=== PATIENT | male | born 1965 | race African-American/Black ===

== ENCOUNTER 2017-08-10 14:36 | Inpatient (IN) | payer OTHER ==
[2017-08-10] MEDS ORDERED: MAGNESIUM HYDROX 2400MG/30ML ORAL SUSPENSION 30 ML CUP PO PRN (17:14)
[2017-08-10] MEDS ORDERED: ACETAMINOPHEN 325 MG TABLET (FP) PO PRN (17:14)
[2017-08-10] MEDS ORDERED: NICOTINE POLACRILEX 2 MG GUM BUC PRN (17:14)
[2017-08-10] MEDS ORDERED: ALBUTEROL SO4 18 GM HFA INHALER IH PRN (17:14)
[2017-08-10] MEDS ORDERED: MENTHOL/PHENOL 1 EACH UD MM PRN (17:14)
[2017-08-10] MEDS ORDERED: P-EPHED 60MG/TRIPROLIDI 2.5MG TABLET PO PRN (17:14)
[2017-08-10] MEDS ORDERED: LOPERAMIDE HCL 2 MG CAPSULE PO PRN (17:14)
[2017-08-10] MEDS ORDERED: MAGNESIUM CITRATE 300 ML BOTTLE PO PRN (17:14)
--- NOTE | 2017-08-10 17:16 | HP ---
[facility] Re[facility] Assess/Revision - Admission History Admitted to Rehab from: [facility] [place] Date of Admission to Rehab: 08/10/17 - Findings Detox History & Physical reviewed: Yes Concur with findings: Yes Inpatient Rehab Admission - Initial Determination Are CD services needed?: Yes Free of communicable disease: Yes Not in need of hospitalization: Yes - Rehab Admission Criteria Previous failed treatment: Yes Poor recovery environment: Yes Comorbidities: Yes Lacks judgement: Yes Patient is meeting Inpatient Rehab admission criteria:: Yes
[2017-08-10] MEDS: BUDESONIDE/FORMETEROL FUMARATE 80/4.5 mcg INHALER IH SCH (21:14)
[2017-08-10] MEDS: THIAMINE HCL 100 MG TABLET (FP) PO SCH (21:14)
[2017-08-11] MEDS: BUDESONIDE/FORMETEROL FUMARATE 80/4.5 mcg INHALER IH SCH ×2 (09:58→22:01)
[2017-08-11] MEDS: PRENATAL VITAMINS W/ FOLIC ACID TABLET (FP) PO SCH (09:58)
[2017-08-11] MEDS: NICOTINE 14 MG/24 HOURS TOPICAL PATCH TD SCH (09:58)
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
[2017-08-11] MEDS ORDERED: COLLOIDAL OATMEAL 1 BAR EACH TP PRN (15:15)
--- NOTE | 2017-08-11 15:15 | PN ---
S Progress Note (SOAP) Subjective: patient c/o indigestion and flatulence, back pain and bordrline PPD placed on admission Objective: 08/11/17 15:14 Vital Signs - 24 hr 08/10/17 08/11/17 08/11/17 17:22 03:30 07:06 Temperature 97.5 F L 97.6 F Pulse Rate 71 63 Respiratory 18 18 18 Rate Blood Pressure 121/63 103/62 labs reviewd, slight indruation of ppd placed on left forearm Assessment: 08/11/17 15:15 restat PPI - protonix, borderline PPD, chronic back pain will restart
[2017-08-11] MEDS: PANTOPRAZOLE 40 MG TABLET (FP) PO SCH (16:15)
[2017-08-11] MEDS: MINERAL OIL/PETROLAT/WATER TOPICAL CREAM 113 GM JAR TP SCH (16:15)
[2017-08-11] MEDS: GABAPENTIN 300 MG CAPSULE (FP) PO SCH ×2 (16:15→22:01)
[2017-08-11] MEDS ORDERED: TUBERCULIN PPD 5 TU/0.1ML VIAL ID ONE (17:04)
[2017-08-11] MEDS: THIAMINE HCL 100 MG TABLET (FP) PO SCH (22:01)
[2017-08-11] MEDS: SIMETHICONE 80 MG TAB.CHEW (FP) PO PRN (22:03)
[2017-08-12] MEDS: GABAPENTIN 300 MG CAPSULE (FP) PO SCH ×3 (06:27→22:06)
[2017-08-12] MEDS: BUDESONIDE/FORMETEROL FUMARATE 80/4.5 mcg INHALER IH SCH ×2 (10:37→22:06)
[2017-08-12] MEDS: NICOTINE 14 MG/24 HOURS TOPICAL PATCH TD SCH (10:38)
[2017-08-12] MEDS: MINERAL OIL/PETROLAT/WATER TOPICAL CREAM 113 GM JAR TP SCH (10:38)
[2017-08-12] MEDS: PRENATAL VITAMINS W/ FOLIC ACID TABLET (FP) PO SCH (10:39)
[2017-08-12] MEDS: SIMETHICONE 80 MG TAB.CHEW (FP) PO PRN (10:40)
[2017-08-12] MEDS: PANTOPRAZOLE 40 MG TABLET (FP) PO SCH (10:40)
[2017-08-12] MEDS: THIAMINE HCL 100 MG TABLET (FP) PO SCH (22:07)
[2017-08-13] MEDS: GABAPENTIN 300 MG CAPSULE (FP) PO SCH ×3 (06:39→21:04)
[2017-08-13] MEDS: BUDESONIDE/FORMETEROL FUMARATE 80/4.5 mcg INHALER IH SCH ×2 (10:44→21:03)
[2017-08-13] MEDS: NICOTINE 14 MG/24 HOURS TOPICAL PATCH TD SCH (10:44)
[2017-08-13] MEDS: PRENATAL VITAMINS W/ FOLIC ACID TABLET (FP) PO SCH (10:44)
[2017-08-13] MEDS: PANTOPRAZOLE 40 MG TABLET (FP) PO SCH (10:44)
[2017-08-13] MEDS: MINERAL OIL/PETROLAT/WATER TOPICAL CREAM 113 GM JAR TP SCH (10:46)
[2017-08-13] MEDS: IBUPROFEN 400 MG TABLET (FP) PO PRN (10:47)
[2017-08-13] MEDS: MAG HYDROX/AL HYDROX/SIMETH 30 ML UNIT-DOSE CUP PO PRN (21:04)
[2017-08-13] MEDS: THIAMINE HCL 100 MG TABLET (FP) PO SCH (21:06)
[2017-08-14] MEDS: GABAPENTIN 300 MG CAPSULE (FP) PO SCH ×3 (06:24→21:08)
[2017-08-14] MEDS: MINERAL OIL/PETROLAT/WATER TOPICAL CREAM 113 GM JAR TP SCH (10:22)
[2017-08-14] MEDS: NICOTINE 14 MG/24 HOURS TOPICAL PATCH TD SCH (10:22)
[2017-08-14] MEDS: BUDESONIDE/FORMETEROL FUMARATE 80/4.5 mcg INHALER IH SCH ×2 (10:22→21:09)
[2017-08-14] MEDS: PANTOPRAZOLE 40 MG TABLET (FP) PO SCH (10:22)
[2017-08-14] MEDS: PRENATAL VITAMINS W/ FOLIC ACID TABLET (FP) PO SCH (10:22)
[2017-08-14] MEDS: guaiFENesin/D-METHORPHAN HB 10 ML UNIT-DOSE CUPS PO PRN (14:16)
[2017-08-14] MEDS: THIAMINE HCL 100 MG TABLET (FP) PO SCH (21:08)
[2017-08-15] MEDS: GABAPENTIN 300 MG CAPSULE (FP) PO SCH ×3 (06:34→22:16)
[2017-08-15] MEDS: IBUPROFEN 400 MG TABLET (FP) PO PRN (07:52)
[2017-08-15] MEDS: PANTOPRAZOLE 40 MG TABLET (FP) PO SCH (10:18)
[2017-08-15] MEDS: PRENATAL VITAMINS W/ FOLIC ACID TABLET (FP) PO SCH (10:18)
[2017-08-15] MEDS: BUDESONIDE/FORMETEROL FUMARATE 80/4.5 mcg INHALER IH SCH ×2 (10:18→22:16)
[2017-08-15] MEDS: NICOTINE 14 MG/24 HOURS TOPICAL PATCH TD SCH (10:18)
[2017-08-15] MEDS: MINERAL OIL/PETROLAT/WATER TOPICAL CREAM 113 GM JAR TP SCH (10:18)
[2017-08-15] MEDS: guaiFENesin/D-METHORPHAN HB 10 ML UNIT-DOSE CUPS PO PRN (10:19)
[2017-08-15] MEDS: THIAMINE HCL 100 MG TABLET (FP) PO SCH (22:16)
[2017-08-15] MEDS: RANITIDINE HCL 150 MG TABLET (FP) PO SCH (22:16)
[2017-08-16] MEDS: GABAPENTIN 300 MG CAPSULE (FP) PO SCH ×3 (06:25→21:57)
[2017-08-16] MEDS: PRENATAL VITAMINS W/ FOLIC ACID TABLET (FP) PO SCH (10:06)
[2017-08-16] MEDS: BUDESONIDE/FORMETEROL FUMARATE 80/4.5 mcg INHALER IH SCH ×2 (10:06→21:58)
[2017-08-16] MEDS: RANITIDINE HCL 150 MG TABLET (FP) PO SCH ×2 (10:06→21:57)
[2017-08-16] MEDS: NICOTINE 14 MG/24 HOURS TOPICAL PATCH TD SCH (10:07)
[2017-08-16] MEDS: MINERAL OIL/PETROLAT/WATER TOPICAL CREAM 113 GM JAR TP SCH (10:07)
[2017-08-16] MEDS: THIAMINE HCL 100 MG TABLET (FP) PO SCH (21:57)
[2017-08-17] MEDS: GABAPENTIN 300 MG CAPSULE (FP) PO SCH ×3 (05:59→21:44)
[2017-08-17] MEDS: BUDESONIDE/FORMETEROL FUMARATE 80/4.5 mcg INHALER IH SCH ×2 (10:10→21:44)
[2017-08-17] MEDS: NICOTINE 14 MG/24 HOURS TOPICAL PATCH TD SCH (10:11)
[2017-08-17] MEDS: PRENATAL VITAMINS W/ FOLIC ACID TABLET (FP) PO SCH (10:11)
[2017-08-17] MEDS: MINERAL OIL/PETROLAT/WATER TOPICAL CREAM 113 GM JAR TP SCH (10:11)
[2017-08-17] MEDS: RANITIDINE HCL 150 MG TABLET (FP) PO SCH ×2 (10:11→21:44)
[2017-08-17] MEDS: THIAMINE HCL 100 MG TABLET (FP) PO SCH (21:44)
[2017-08-18] MEDS: GABAPENTIN 300 MG CAPSULE (FP) PO SCH ×3 (06:22→21:46)
[2017-08-18] MEDS: PRENATAL VITAMINS W/ FOLIC ACID TABLET (FP) PO SCH (10:35)
[2017-08-18] MEDS: NICOTINE 14 MG/24 HOURS TOPICAL PATCH TD SCH (10:35)
[2017-08-18] MEDS: RANITIDINE HCL 150 MG TABLET (FP) PO SCH ×2 (10:35→21:46)
[2017-08-18] MEDS: BUDESONIDE/FORMETEROL FUMARATE 80/4.5 mcg INHALER IH SCH ×2 (10:35→21:46)
[2017-08-18] MEDS: MINERAL OIL/PETROLAT/WATER TOPICAL CREAM 113 GM JAR TP SCH (10:35)
[2017-08-18] MEDS: THIAMINE HCL 100 MG TABLET (FP) PO SCH (21:46)
[2017-08-19] MEDS: GABAPENTIN 300 MG CAPSULE (FP) PO SCH ×3 (06:27→21:31)
[2017-08-19] MEDS: PRENATAL VITAMINS W/ FOLIC ACID TABLET (FP) PO SCH (10:15)
[2017-08-19] MEDS: RANITIDINE HCL 150 MG TABLET (FP) PO SCH ×2 (10:15→21:31)
[2017-08-19] MEDS: BUDESONIDE/FORMETEROL FUMARATE 80/4.5 mcg INHALER IH SCH ×2 (10:15→21:31)
[2017-08-19] MEDS: MINERAL OIL/PETROLAT/WATER TOPICAL CREAM 113 GM JAR TP SCH (10:15)
[2017-08-19] MEDS: NICOTINE 14 MG/24 HOURS TOPICAL PATCH TD SCH (10:16)
[2017-08-19] MEDS: THIAMINE HCL 100 MG TABLET (FP) PO SCH (21:31)
[2017-08-20] MEDS: GABAPENTIN 300 MG CAPSULE (FP) PO SCH ×3 (06:20→21:42)
[2017-08-20] MEDS: RANITIDINE HCL 150 MG TABLET (FP) PO SCH ×2 (10:38→21:42)
[2017-08-20] MEDS: PRENATAL VITAMINS W/ FOLIC ACID TABLET (FP) PO SCH (10:38)
[2017-08-20] MEDS: NICOTINE 14 MG/24 HOURS TOPICAL PATCH TD SCH (10:38)
[2017-08-20] MEDS: BUDESONIDE/FORMETEROL FUMARATE 80/4.5 mcg INHALER IH SCH ×2 (10:38→21:42)
[2017-08-20] MEDS: MINERAL OIL/PETROLAT/WATER TOPICAL CREAM 113 GM JAR TP SCH (10:39)
--- NOTE | 2017-08-20 14:21 | PN ---
[facility] Progress Note (SOAP) Subjective: requesting to have PPD read, 2 step process implemented becaaseu of borderline initial PPD Objective: 08/20/17 14:20 Vital Signs - 24 hr 08/20/17 08/20/17 08/20/17 00:30 03:30 07:00 Temperature 98.4 F Pulse Rate 50 L Respiratory 16 16 16 Rate Blood Pressure 119/53 labs reviewed PPD neg with 2 step process Assessment: 08/20/17 14:21 PPD neg, cxr not indicated
[2017-08-20] MEDS: THIAMINE HCL 100 MG TABLET (FP) PO SCH (21:41)
[2017-08-21] MEDS: GABAPENTIN 300 MG CAPSULE (FP) PO SCH ×3 (06:24→22:10)
[2017-08-21] MEDS: RANITIDINE HCL 150 MG TABLET (FP) PO SCH ×2 (10:41→22:10)
[2017-08-21] MEDS: PRENATAL VITAMINS W/ FOLIC ACID TABLET (FP) PO SCH (10:41)
[2017-08-21] MEDS: BUDESONIDE/FORMETEROL FUMARATE 80/4.5 mcg INHALER IH SCH ×2 (10:42→22:10)
[2017-08-21] MEDS: NICOTINE 14 MG/24 HOURS TOPICAL PATCH TD SCH (10:42)
[2017-08-21] MEDS: MINERAL OIL/PETROLAT/WATER TOPICAL CREAM 113 GM JAR TP SCH (10:43)
[2017-08-21] MEDS: THIAMINE HCL 100 MG TABLET (FP) PO SCH (22:10)
[2017-08-22] MEDS: GABAPENTIN 300 MG CAPSULE (FP) PO SCH ×3 (06:33→21:43)
[2017-08-22] MEDS: NICOTINE 14 MG/24 HOURS TOPICAL PATCH TD SCH (10:38)
[2017-08-22] MEDS: MINERAL OIL/PETROLAT/WATER TOPICAL CREAM 113 GM JAR TP SCH (10:38)
[2017-08-22] MEDS: BUDESONIDE/FORMETEROL FUMARATE 80/4.5 mcg INHALER IH SCH ×2 (10:39→21:43)
[2017-08-22] MEDS: PRENATAL VITAMINS W/ FOLIC ACID TABLET (FP) PO SCH (10:39)
[2017-08-22] MEDS: RANITIDINE HCL 150 MG TABLET (FP) PO SCH ×2 (10:39→21:43)
[2017-08-22] MEDS: THIAMINE HCL 100 MG TABLET (FP) PO SCH (21:43)
[2017-08-23] MEDS: GABAPENTIN 300 MG CAPSULE (FP) PO SCH ×3 (06:47→21:35)
[2017-08-23] MEDS: RANITIDINE HCL 150 MG TABLET (FP) PO SCH ×2 (10:43→21:35)
[2017-08-23] MEDS: PRENATAL VITAMINS W/ FOLIC ACID TABLET (FP) PO SCH (10:43)
[2017-08-23] MEDS: MINERAL OIL/PETROLAT/WATER TOPICAL CREAM 113 GM JAR TP SCH (10:44)
[2017-08-23] MEDS: BUDESONIDE/FORMETEROL FUMARATE 80/4.5 mcg INHALER IH SCH ×2 (10:44→21:36)
[2017-08-23] MEDS: NICOTINE 14 MG/24 HOURS TOPICAL PATCH TD SCH (10:45)
[2017-08-23] MEDS: SIMETHICONE 80 MG TAB.CHEW (FP) PO PRN (11:12)
[2017-08-23] MEDS: THIAMINE HCL 100 MG TABLET (FP) PO SCH (21:35)
[2017-08-24] MEDS: GABAPENTIN 300 MG CAPSULE (FP) PO SCH ×3 (06:39→21:38)
[2017-08-24] MEDS: BUDESONIDE/FORMETEROL FUMARATE 80/4.5 mcg INHALER IH SCH ×2 (10:17→21:38)
[2017-08-24] MEDS: PRENATAL VITAMINS W/ FOLIC ACID TABLET (FP) PO SCH (10:17)
[2017-08-24] MEDS: NICOTINE 14 MG/24 HOURS TOPICAL PATCH TD SCH (10:17)
[2017-08-24] MEDS: RANITIDINE HCL 150 MG TABLET (FP) PO SCH ×2 (10:17→21:38)
[2017-08-24] MEDS: MINERAL OIL/PETROLAT/WATER TOPICAL CREAM 113 GM JAR TP SCH (10:17)
[2017-08-24] MEDS: THIAMINE HCL 100 MG TABLET (FP) PO SCH (21:38)
[2017-08-25] MEDS: GABAPENTIN 300 MG CAPSULE (FP) PO SCH ×3 (06:02→21:48)
[2017-08-25] MEDS: NICOTINE 14 MG/24 HOURS TOPICAL PATCH TD SCH (10:35)
[2017-08-25] MEDS: PRENATAL VITAMINS W/ FOLIC ACID TABLET (FP) PO SCH (10:35)
[2017-08-25] MEDS: RANITIDINE HCL 150 MG TABLET (FP) PO SCH ×2 (10:35→21:48)
[2017-08-25] MEDS: BUDESONIDE/FORMETEROL FUMARATE 80/4.5 mcg INHALER IH SCH ×2 (10:36→21:48)
[2017-08-25] MEDS: MINERAL OIL/PETROLAT/WATER TOPICAL CREAM 113 GM JAR TP SCH (10:37)
[2017-08-25] MEDS: THIAMINE HCL 100 MG TABLET (FP) PO SCH (21:48)
[2017-08-26] MEDS: GABAPENTIN 300 MG CAPSULE (FP) PO SCH ×3 (06:11→21:55)
[2017-08-26] MEDS: RANITIDINE HCL 150 MG TABLET (FP) PO SCH ×2 (10:26→21:54)
[2017-08-26] MEDS: PRENATAL VITAMINS W/ FOLIC ACID TABLET (FP) PO SCH (10:26)
[2017-08-26] MEDS: MINERAL OIL/PETROLAT/WATER TOPICAL CREAM 113 GM JAR TP SCH (10:27)
[2017-08-26] MEDS: NICOTINE 14 MG/24 HOURS TOPICAL PATCH TD SCH (10:27)
[2017-08-26] MEDS: BUDESONIDE/FORMETEROL FUMARATE 80/4.5 mcg INHALER IH SCH ×2 (10:27→21:54)
[2017-08-26] MEDS: THIAMINE HCL 100 MG TABLET (FP) PO SCH (21:54)
[2017-08-27] MEDS: GABAPENTIN 300 MG CAPSULE (FP) PO SCH (06:27)
[2017-08-27] MEDS: MAG HYDROX/AL HYDROX/SIMETH 30 ML UNIT-DOSE CUP PO PRN (06:48)
[2017-08-27 07:06] VITALS: BP 125/77; PULSE 52; TEMP 98.1
[2017-08-27] MEDS: MINERAL OIL/PETROLAT/WATER TOPICAL CREAM 113 GM JAR TP SCH (09:51)
[2017-08-27] MEDS: NICOTINE 14 MG/24 HOURS TOPICAL PATCH TD SCH (09:51)
[2017-08-27] MEDS: BUDESONIDE/FORMETEROL FUMARATE 80/4.5 mcg INHALER IH SCH (09:52)
[2017-08-27] MEDS: RANITIDINE HCL 150 MG TABLET (FP) PO SCH (09:53)
[2017-08-27] MEDS: PRENATAL VITAMINS W/ FOLIC ACID TABLET (FP) PO SCH (09:53)
--- NOTE | 2017-08-27 10:58 | PN ---
Psychiatric Progress Note Vital Signs: Vital Signs Period Temp Pulse Resp BP Sys/Menendez Pulse Ox Last 24 Hr 98.1 F 52 18-18 125/77 Date of Session: 08/27/17 Chief Complaint:: discharge visit HPI: Patient has addressed alcohol, cocaine,cannabis and nicotine dependence. Current Medications: Active Medications Generic Name Dose Route Start Last Admin Trade Name Freq PRN Reason Stop Dose Admin Acetaminophen 650 mg 08/10/17 17:14 Tylenol - PO Q4H PRN FEVER OR PAIN Al Hydroxide/Mg Hydroxide 30 ml 08/10/17 17:14 08/27/17 06:48 Mylanta Oral Suspension - PO 30 ml Q6H PRN Administration DYSPEPSIA Albuterol Sulfate 2 puff 08/10/17 17:14 08/27/17 06:46 Ventolin Hfa Inhaler - IH 2 puff Q4H PRN Administration SHORT OF BREATH/WHEEZING Budesonide/Formoterol Fumarate 2 puff 08/10/17 22:00 08/27/17 09:52 Symbicort 80/4.5mcg - IH 2 puff BID SHEN Administration Colloidal Oatmeal 1 applic 08/11/17 15:15 Aveeno Soap - TP DAILY PRN HYGEINE Eucalyptus/Menthol/Phenol/Sorbitol 1 each 08/10/17 17:14 Cepastat Lozenge - MM Q4H PRN SORE THROAT Gabapentin 300 mg 08/11/17 15:15 08/27/17 06:27 Neurontin - PO 300 mg TID SHEN Administration Guaifenesin 10 ml 08/10/17 17:14 08/15/17 10:19 Robitussin Dm - PO 10 ml Q6H PRN Administration COUGH Ibuprofen 400 mg 08/10/17 17:14 08/15/17 07:52 Motrin - PO 400 mg Q6H PRN Administration PAIN Loperamide HCl 4 mg 08/10/17 17:14 Imodium - PO Q6H PRN DIARRHEA Magnesium Citrate 300 ml 08/10/17 17:14 Citroma - PO Q48H PRN CONSTIPATION Magnesium Hydroxide 30 ml 08/10/17 17:14 08/12/17 16:55 Milk Of Magnesia - PO 30 ml DAILY PRN Administration CONSTIPATION Multi-Ingredient Lotion 1 applic 08/11/17 15:15 08/27/17 09:51 Eucerin (Small Jar) - TP Not Given DAILY SHEN Nicotine 14 mg 08/11/17 10:00 08/27/17 09:51 Nicoderm Patch - TD Not Given DAILY SHEN Nicotine Polacrilex 2 mg 08/10/17 17:14 Nicorette Gum - BUC Q2H PRN NICOTINE REPLACEMENT RX Multivit/Folic Acid/Iron 1 tab 08/11/17 10:00 08/27/17 09:53 Vitamins (Sjr) - PO 1 tab DAILY SHEN Administration Pseudoephedrine/Triprolidine 1 combo 08/10/17 17:14 08/15/17 06:35 Actifed - PO 1 combo TID PRN Administration NASAL CONGESTION Ranitidine HCl 150 mg 08/15/17 22:00 08/27/17 09:53 Zantac - PO 150 mg BID SHEN Administration Simethicone 80 mg 08/11/17 15:12 08/23/17 11:12 Mylicon - PO 80 mg Q4H PRN Administration DYSPEPSIA Thiamine HCl 100 mg 08/10/17 22:00 08/26/17 21:54 Vitamin B1 - PO 100 mg HS SHEN Administration Current Side Effect: No Lab tests ordered: No Lab tests reviewed: Yes Provider note:: Patient has completed today treatment and met his treatment goals, he will continue to address his issues at the next level of care. The patient aknowledges considerable benefts from this rehabilitation program. He has gained insight into the importance of changing attitude for utilization of supports available to maintain hs abstinence. He reports he is able to identify behaviors which contribute to relapse and learned skills through this program that he will utilize to maintain sobriety, He verbalized his motivations to stay abstinent and adherent to every aspects of his aftercare treatment plans, patient appears to be stable for discharge. Total face to face time:: 35 Mental Status Exam - Mental Status Exam Alert and Oriented to: Time, Place, Person Cognitive Function: Good Patient Appearance: Well Groomed Mood: Hopeful Affect: Appropriate, Mood Congruent Patient Behavior: Appropriate, Cooperative Speech Pattern: Clear, Appropriate Voice Loudness: Normal Thought Process: Intact, Goal Oriented Thought Disorder: Not Present Hallucinations: Denies Suicidal Ideation: Denies Homicidal Ideation: Denies Insight/Judgement: Fair Sleep: Fair Appetite: Fair Muscle strength/Tone: Normal Gait/Station: Normal Psychiatric Treatment Plan - Problem List (1) Alcohol dependence Current Visit: No (2) Cannabis dependence Current Visit: No (3) Cocaine dependence Current Visit: No (4) Nicotine dependence Current Visit: No Qualifiers: Nicotine product type: cigarettes Substance use status: in withdrawal Qualified Code(s): F17.213 - Nicotine dependence, cigarettes, with withdrawal
== END 2017-08-27 10:55 | disposition home or self-care (01) | DRG 895 ==
LOC: YASAS 14:36 → Y5N 14:38
PROVIDERS: ADMIT Psychiatry & Neurology Psychiatry; ATTEND Psychiatry & Neurology Psychiatry
PROC: HZ42ZZZ Group Counseling for Substance Abuse Treatment, Cognitive-Behavioral (ICD-10-PCS; principal; 2017-08-10)
DX: F10.20 Alcohol dependence, uncomplicated (principal); F14.20 Cocaine dependence, uncomplicated; F12.20 Cannabis dependence, uncomplicated; F17.213 Nicotine dependence, cigarettes, with withdrawal; J44.9 Chronic obstructive pulmonary disease, unspecified; M54.5 Low back pain; G89.29 Other chronic pain; K21.9 Gastro-esophageal reflux disease without esophagitis; Z59.0 Homelessness

== ENCOUNTER 2017-11-01 13:06 | Inpatient (IN) | payer OTHER ==
[2017-11-01 15:56] VITALS: BMI 23.3
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
[2017-11-01] MEDS ORDERED: LOPERAMIDE HCL 2 MG CAPSULE PO PRN (21:37)
[2017-11-01] MEDS ORDERED: MAGNESIUM CITRATE 300 ML BOTTLE PO PRN (21:37)
[2017-11-01] MEDS ORDERED: IBUPROFEN 400 MG TABLET (FP) PO PRN (21:37)
[2017-11-01] MEDS ORDERED: MAG HYDROX/AL HYDROX/SIMETH 30 ML UNIT-DOSE CUP PO PRN (21:37)
[2017-11-01] MEDS ORDERED: NICOTINE POLACRILEX 2 MG GUM BC PRN (21:37)
[2017-11-01] MEDS ORDERED: guaiFENesin/D-METHORPHAN HB 10 ML UNIT-DOSE CUPS PO PRN (21:37)
[2017-11-01] MEDS ORDERED: MAGNESIUM HYDROX 2400MG/30ML ORAL SUSPENSION 30 ML CUP PO PRN (21:37)
[2017-11-01] MEDS ORDERED: ACETAMINOPHEN 325 MG TABLET (FP) PO PRN (21:37)
[2017-11-01] MEDS ORDERED: chlordiazePOXIDE HCL 25 MG CAPSULE PO PRN (21:37)
[2017-11-01] MEDS ORDERED: P-EPHED 60MG/TRIPROLIDI 2.5MG TABLET PO PRN (21:37)
[2017-11-01] MEDS ORDERED: MENTHOL/PHENOL 1 EACH UD MM PRN (21:37)
[2017-11-01] MEDS ORDERED: ALBUTEROL SO4 18 GM HFA INHALER IH PRN (21:39)
[2017-11-01] MEDS: chlordiazePOXIDE HCL 25 MG CAPSULE PO SCH (23:18)
[2017-11-01] MEDS: THIAMINE HCL 100 MG TABLET (FP) PO SCH (23:19)
[2017-11-01] MEDS: GABAPENTIN 300 MG CAPSULE (FP) PO SCH (23:19)
[2017-11-02] MEDS: chlordiazePOXIDE HCL 25 MG CAPSULE PO SCH ×5 (05:58→22:58)
[2017-11-02] MEDS: GABAPENTIN 300 MG CAPSULE (FP) PO SCH ×3 (05:58→22:58)
[2017-11-02 10:29] LABS: HEMATOCRIT 41.4 % (35.4-49); HEMOGLOBIN 13.7 GM/dL (11.7-16.9); MCH 30.5 pg (25.7-33.7); MCHC 33.2 g/dl (32.0-35.9); MEAN CELL VOLUME 91.9 fl (80-96); MEAN PLT VOLUME 9.8 fl (7.5-11.1); PLATELET COUNT 233 K/MM3 (134-434); RDW 15.5 % (11.9-15.9); WHITE BLOOD COUNT 5.3 K/mm3 (4.0-10.0)
[2017-11-02 10:34] LABS: URINE APPEARANCE TURBID; URINE BILIRUBIN NEGATIVE (NEGATIVE); URINE BLOOD NEGATIVE (NEGATIVE); URINE COLOR AMBER; URINE GLUCOSE (UA) NEGATIVE (NEGATIVE); URINE KETONE NEGATIVE (NEGATIVE); URINE LEUK ESTERASE NEGATIVE (NEGATIVE); URINE NITRITE NEGATIVE (NEGATIVE); URINE PROTEIN NEGATIVE (NEGATIVE)
[2017-11-02 10:39] LABS: ALBUMIN 3.1 g/dl (3.4-5.0); ANION GAP 10 (8-16); BLOOD UREA NITROGEN 18 mg/dL (7-18); CALCIUM 8.7 mg/dL (8.5-10.1); CHLORIDE 104 mmol/L (98-107); CO2 28 mmol/L (21-32); GLUCOSE,RANDOM 120 mg/dL (74-106); POTASSIUM 3.7 mmol/L (3.5-5.1); SODIUM 142 mmol/L (136-145)
[2017-11-02 10:42] LABS: ALK PHOS 110 U/L (45-117); BILIRUBIN,TOTAL 0.3 mg/dL (0.2-1.0); CREATININE 1.2 mg/dL (0.7-1.3); SGOT/AST 18 U/L (15-37); SGPT/ALT 28 U/L (12-78)
[2017-11-02] MEDS: PRENATAL VITAMINS W/ FOLIC ACID TABLET (FP) PO SCH (10:56)
[2017-11-02] MEDS: NICOTINE 14 MG/24 HOURS TOPICAL PATCH TD SCH (10:57)
--- NOTE | 2017-11-02 14:27 | EKG ---
Test Reason : Blood Pressure : / mmHG Vent. Rate : 068 BPM Atrial Rate : 068 BPM P-R Int : 152 ms QRS Dur : 084 ms QT Int : 398 ms P-R-T Axes : 079 075 071 degrees QTc Int : 423 ms NORMAL SINUS RHYTHM NORMAL ECG WHEN COMPARED WITH ECG OF 07-AUG-2017 00:54, NO SIGNIFICANT CHANGE WAS FOUND Confirmed by MD BLU, DIANE ([id number]) on 11/02/2017 2:27:40 PM Referred By: Confirmed By:DIANE HURT MD
--- NOTE | 2017-11-02 15:11 | PN ---
[facility] CIWA - CIWA Score Nausea/Vomitin-Int. Nausea w/Dry Heave Muscle Tremors: 4-Moderate,w/Arms Extend Anxiety: 4-Mod. Anxious/Guarded Agitation: 4-Moderately Restless Paroxysmal Sweats: 3 Orientation: 0-Oriented Tacttile Disturbances: 0-None Auditory Disturbances: 0-None Visual Disturbances: 0-None Headache: 0-None Present CIWA-Ar Total Score: 19 [facility] Progress Note (SOAP) Subjective: Back pain, interrupted sleep, anxious, sweating Objective: 11/02/17 15:09 Last Vital Signs Temp Pulse Resp BP Pulse Ox 98.1 F 68 18 99/68 11/02/17 06:24 11/02/17 06:24 11/02/17 06:24 11/02/17 06:24 Laboratory Tests 11/02/17 11/02/17 11/02/17 08:00 08:00 08:00 WBC 5.3 RBC 4.50 Hgb 13.7 Hct 41.4 MCV 91.9 MCH 30.5 MCHC 33.2 RDW 15.5 Plt Count 233 MPV 9.8 Sodium 142 Potassium 3.7 Chloride 104 Carbon Dioxide 28 Anion Gap 10 BUN 18 D Creatinine 1.2 D Creat Clearance w eGFR > 60 Random Glucose 120 H D Calcium 8.7 Total Bilirubin 0.3 AST 18 D ALT 28 D Alkaline Phosphatase 110 D Total Protein 6.0 L Albumin 3.1 L Urine Color Urine Appearance Urine pH Ur Specific [place] Urine Protein Urine Glucose (UA) Urine Ketones Urine Blood Urine Nitrite Urine Bilirubin Urine Urobilinogen Ur Leukocyte Esterase RPR Titer HIV 1&2 Antibody Screen Negative HIV P24 Antigen Negative 11/02/17 11/02/17 08:00 09:30 WBC RBC Hgb Hct MCV MCH MCHC RDW Plt Count MPV Sodium Potassium Chloride Carbon Dioxide Anion Gap BUN Creatinine Creat Clearance w eGFR Random Glucose Calcium Total Bilirubin AST ALT Alkaline Phosphatase Total Protein Albumin Urine Color Kelli Urine Appearance Turbid Urine pH 5.0 Ur Specific [place] 1.025 Urine Protein Negative Urine Glucose (UA) Negative Urine Ketones Negative Urine Blood Negative Urine Nitrite Negative Urine Bilirubin Negative Urine Urobilinogen 2.0 Ur Leukocyte Esterase Negative RPR Titer Nonreactive HIV 1&2 Antibody Screen HIV P24 Antigen Labs noted Assessment: 11/02/17 15:10 Withdrawal symptoms Plan: Continue detox Encouraged to drink more water for hydration
[2017-11-02] MEDS: THIAMINE HCL 100 MG TABLET (FP) PO SCH (22:58)
[2017-11-03] MEDS: GABAPENTIN 300 MG CAPSULE (FP) PO SCH ×2 (06:04→15:16)
[2017-11-03] MEDS: chlordiazePOXIDE HCL 25 MG CAPSULE PO SCH ×2 (06:05→10:19)
[2017-11-03 06:42] VITALS: BP 103/59; PULSE 59; TEMP 96.5
[2017-11-03] MEDS: NICOTINE 14 MG/24 HOURS TOPICAL PATCH TD SCH (10:19)
[2017-11-03] MEDS: PRENATAL VITAMINS W/ FOLIC ACID TABLET (FP) PO SCH (10:19)
--- NOTE | 2017-11-03 12:38 | PN ---
[facility] CIWA - CIWA Score Nausea/Vomitin-No Nausea/No Vomiting Muscle Tremors: 4-Moderate,w/Arms Extend Anxiety: 4-Mod. Anxious/Guarded Agitation: 4-Moderately Restless Paroxysmal Sweats: 1-Minimal Palms Moist Orientation: 0-Oriented Tacttile Disturbances: 3-Moderate Itch/Numb/Burn Auditory Disturbances: 0-None Visual Disturbances: 0-None Headache: 0-None Present CIWA-Ar Total Score: 16 S Progress Note (SOAP) Subjective: ANXIETY,FATIGUE BACK PAIN, SWEATS,TREMORS, "WOOZY". Objective: 11/03/17 12:38 Vital Signs Temperature 96.5 F L 11/03/17 06:42 Pulse Rate 59 L 11/03/17 06:42 Respiratory Rate 19 11/03/17 06:42 Blood Pressure 103/59 11/03/17 06:42 O2 Sat by Pulse Oximetry (%) Laboratory Last Values WBC 5.3 K/mm3 (4.0-10.0) 11/02/17 08:00 RBC 4.50 M/mm3 (4.00-5.60) 11/02/17 08:00 Hgb 13.7 GM/dL (11.7-16.9) 11/02/17 08:00 Hct 41.4 % (35.4-49) 11/02/17 08:00 MCV 91.9 fl (80-96) 11/02/17 08:00 MCH 30.5 pg (25.7-33.7) 11/02/17 08:00 MCHC 33.2 g/dl (32.0-35.9) 11/02/17 08:00 RDW 15.5 % (11.9-15.9) 11/02/17 08:00 Plt Count 233 K/MM3 (134-434) 11/02/17 08:00 MPV 9.8 fl (7.5-11.1) 11/02/17 08:00 Sodium 142 mmol/L (136-145) 11/02/17 08:00 Potassium 3.7 mmol/L (3.5-5.1) 11/02/17 08:00 Chloride 104 mmol/L (98-107) 11/02/17 08:00 Carbon Dioxide 28 mmol/L (21-32) 11/02/17 08:00 Anion Gap 10 (8-16) 11/02/17 08:00 BUN 18 mg/dL (7-18) D 11/02/17 08:00 Creatinine 1.2 mg/dL (0.7-1.3) D 11/02/17 08:00 Creat Clearance w eGFR > 60 (>60) 11/02/17 08:00 Random Glucose 120 mg/dL (74-106) H D 11/02/17 08:00 Calcium 8.7 mg/dL (8.5-10.1) 11/02/17 08:00 Total Bilirubin 0.3 mg/dL (0.2-1.0) 11/02/17 08:00 AST 18 U/L (15-37) D 11/02/17 08:00 ALT 28 U/L (12-78) D 11/02/17 08:00 Alkaline Phosphatase 110 U/L (45-117) D 11/02/17 08:00 Total Protein 6.0 g/dl (6.4-8.2) L 11/02/17 08:00 Albumin 3.1 g/dl (3.4-5.0) L 11/02/17 08:00 Urine Color K[place] 11/02/17 09:30 Urine Appearance Turbid 11/02/17 09:30 Urine pH 5.0 (5.0-8.0) 11/02/17 09:30 Ur Specific [place] 1.025 (1.001-1.035) 11/02/17 09:30 Urine Protein Negative (NEGATIVE) 11/02/17 09:30 Urine Glucose (UA) Negative (NEGATIVE) 11/02/17 09:30 Urine Ketones Negative (NEGATIVE) 11/02/17 09:30 Urine Blood Negative (NEGATIVE) 11/02/17 09:30 Urine Nitrite Negative (NEGATIVE) 11/02/17 09:30 Urine Bilirubin Negative (NEGATIVE) 11/02/17 09:30 Urine Urobilinogen 2.0 mg/dL (0.2-1.0) 11/02/17 09:30 Ur Leukocyte Esterase Negative (NEGATIVE) 11/02/17 09:30 RPR Titer Nonreactive (NONREACTIVE) 11/02/17 08:00 HIV 1&2 Antibody Screen Negative 11/02/17 08:00 HIV P24 Antigen Negative 11/02/17 08:00 Assessment: 03/05/18 12:38 WITHDRAWAL SX Plan: HOLD LIBRIUM NEEDED CONTINUE DETOX
--- NOTE | 2017-11-03 17:27 | DS ---
[facility] Detox Discharge Summary Admission Date: 11/01/17 Discharge Date: 11/03/17 - History Present History: Alcohol Dependence, Cannabis Dependence Additional Comments: PT DECLINED TO CONTINUE WITH DETOX FOR PERSONAL REASONS. ALERT O X 3. NAD. Pertinent Past History: SEE DX BELOW - Physical Exam Results Vital Signs: Vital Signs Temperature 96.5 F L 11/03/17 06:42 Pulse Rate 59 L 11/03/17 06:42 Respiratory Rate 19 11/03/17 06:42 Blood Pressure 103/59 11/03/17 06:42 O2 Sat by Pulse Oximetry (%) Pertinent Admission Physical Exam Findings: WITHDRAWAL SX Laboratory Last Values WBC 5.3 K/mm3 (4.0-10.0) 11/02/17 08:00 RBC 4.50 M/mm3 (4.00-5.60) 11/02/17 08:00 Hgb 13.7 GM/dL (11.7-16.9) 11/02/17 08:00 Hct 41.4 % (35.4-49) 11/02/17 08:00 MCV 91.9 fl (80-96) 11/02/17 08:00 MCH 30.5 pg (25.7-33.7) 11/02/17 08:00 MCHC 33.2 g/dl (32.0-35.9) 11/02/17 08:00 RDW 15.5 % (11.9-15.9) 11/02/17 08:00 Plt Count 233 K/MM3 (134-434) 11/02/17 08:00 MPV 9.8 fl (7.5-11.1) 11/02/17 08:00 Sodium 142 mmol/L (136-145) 11/02/17 08:00 Potassium 3.7 mmol/L (3.5-5.1) 11/02/17 08:00 Chloride 104 mmol/L (98-107) 11/02/17 08:00 Carbon Dioxide 28 mmol/L (21-32) 11/02/17 08:00 Anion Gap 10 (8-16) 11/02/17 08:00 BUN 18 mg/dL (7-18) D 11/02/17 08:00 Creatinine 1.2 mg/dL (0.7-1.3) D 11/02/17 08:00 Creat Clearance w eGFR > 60 (>60) 11/02/17 08:00 Random Glucose 120 mg/dL (74-106) H D 11/02/17 08:00 Calcium 8.7 mg/dL (8.5-10.1) 11/02/17 08:00 Total Bilirubin 0.3 mg/dL (0.2-1.0) 11/02/17 08:00 AST 18 U/L (15-37) D 11/02/17 08:00 ALT 28 U/L (12-78) D 11/02/17 08:00 Alkaline Phosphatase 110 U/L (45-117) D 11/02/17 08:00 Total Protein 6.0 g/dl (6.4-8.2) L 11/02/17 08:00 Albumin 3.1 g/dl (3.4-5.0) L 11/02/17 08:00 Urine Color Kelli 11/02/17 09:30 Urine Appearance Turbid 11/02/17 09:30 Urine pH 5.0 (5.0-8.0) 11/02/17 09:30 Ur Specific [place] 1.025 (1.001-1.035) 11/02/17 09:30 Urine Protein Negative (NEGATIVE) 11/02/17 09:30 Urine Glucose (UA) Negative (NEGATIVE) 11/02/17 09:30 Urine Ketones Negative (NEGATIVE) 11/02/17 09:30 Urine Blood Negative (NEGATIVE) 11/02/17 09:30 Urine Nitrite Negative (NEGATIVE) 11/02/17 09:30 Urine Bilirubin Negative (NEGATIVE) 11/02/17 09:30 Urine Urobilinogen 2.0 mg/dL (0.2-1.0) 11/02/17 09:30 Ur Leukocyte Esterase Negative (NEGATIVE) 11/02/17 09:30 RPR Titer Nonreactive (NONREACTIVE) 11/02/17 08:00 HIV 1&2 Antibody Screen Negative 11/02/17 08:00 HIV P24 Antigen Negative 11/02/17 08:00 - Treatment Hospital Course: Discharged Condition Good - Medication Discharge Medications: Ambulatory Orders Albuterol Sulfate Inhaler - [Ventolin HFA Inhaler -] 2 puff IH Q4H PRN #1 inhaler 08/27/17 Gabapentin [Neurontin -] 300 mg PO TID #90 capsule 08/27/17 - Diagnosis (1) Alcohol dependence with uncomplicated withdrawal Current Visit: Yes Status: Acute (2) COPD - Chronic obstructive lung disease Current Visit: Yes Status: Chronic (3) Chronic back pain Current Visit: Yes Status: Chronic (4) Weight decreased Current Visit: Yes Status: Acute (5) GERD (gastroesophageal reflux disease) Current Visit: No Status: Chronic Qualifiers: Esophagitis presence: without esophagitis Qualified Code(s): K21.9 - Gastro -esophageal reflux disease without esophagitis (6) Nicotine dependence Current Visit: Yes Status: Acute Qualifiers: Nicotine product type: cigarettes Substance use status: in withdrawal Qualified Code(s): F17.213 - Nicotine dependence, cigarettes, with withdrawal (7) Cannabis dependence, uncomplicated Current Visit: Yes Status: Acute - AMA Did Patient Leave Against Medical Advice: Yes (AMA)
[2017-11-03] MEDS ORDERED: chlordiazePOXIDE 5 MG CAPSULE PO SCH (23:00)
[2017-11-04] MEDS ORDERED: chlordiazePOXIDE HCL 10 MG CAPSULE PO SCH (23:00)
== END 2017-11-03 17:12 | disposition left against medical advice (07) | DRG 894 ==
LOC: YASAS 13:06 → Y3N 21:19
PROVIDERS: ADMIT Internal Medicine; ATTEND Internal Medicine
PROC: HZ2ZZZZ Detoxification Services for Substance Abuse Treatment (ICD-10-PCS; principal; 2017-11-01)
DX: F10.230 Alcohol dependence with withdrawal, uncomplicated (principal); F14.20 Cocaine dependence, uncomplicated; F12.20 Cannabis dependence, uncomplicated; F17.213 Nicotine dependence, cigarettes, with withdrawal; J43.9 Emphysema, unspecified; M54.5 Low back pain; G89.29 Other chronic pain; K21.9 Gastro-esophageal reflux disease without esophagitis; Z87.898 Personal history of other specified conditions; Z59.0 Homelessness
CPT/HCPCS: 36415; 80053; 81003; 85027; 86593; 87389; 93005; 93010

== ENCOUNTER 2018-10-13 09:33 | Inpatient (IN) | payer MEDICARE, OTHER ==
[2018-10-13 10:04] VITALS: BMI 21.3
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
[2018-10-13] MEDS ORDERED: hydrOXYzine PAMOATE 25 MG CAPSULE (FP) PO PRN (11:58)
[2018-10-13] MEDS ORDERED: guaiFENesin/D-METHORPHAN HB 10 ML UNIT-DOSE CUPS PO PRN (11:58)
[2018-10-13] MEDS ORDERED: MENTHOL/PHENOL 1 EACH UD MM PRN (11:58)
[2018-10-13] MEDS ORDERED: chlordiazePOXIDE HCL 25 MG CAPSULE PO PRN (11:58)
[2018-10-13] MEDS ORDERED: P-EPHED 60MG/TRIPROLIDI 2.5MG TABLET PO PRN (11:58)
[2018-10-13] MEDS ORDERED: IBUPROFEN 400 MG TABLET (FP) PO PRN (11:58)
[2018-10-13] MEDS ORDERED: MAGNESIUM HYDROX 2400MG/30ML ORAL SUSPENSION 30 ML CUP PO PRN (11:58)
[2018-10-13] MEDS ORDERED: MAG HYDROX/AL HYDROX/SIMETH 30 ML UNIT-DOSE CUP PO PRN (11:58)
[2018-10-13] MEDS ORDERED: NICOTINE POLACRILEX 2 MG GUM BUC PRN (11:58)
[2018-10-13] MEDS ORDERED: MAGNESIUM CITRATE 300 ML BOTTLE PO PRN (11:58)
[2018-10-13] MEDS ORDERED: LOPERAMIDE HCL 2 MG CAPSULE PO PRN (11:58)
[2018-10-13] MEDS ORDERED: ALBUTEROL SO4 8 GM HFA INHALER IH PRN (12:01)
[2018-10-13] MEDS: BACITRACIN 0.9 GM PACKET TP SCH ×2 (13:37→23:11)
[2018-10-13] MEDS: GABAPENTIN 300 MG CAPSULE (FP) PO SCH ×2 (13:37→23:12)
[2018-10-13] MEDS: NICOTINE 21 MG/24 HOURS TOPICAL PATCH TD SCH (13:38)
[2018-10-13] MEDS: AMMONIUM LACTATE 12% LOTION 225 GM BOTTLE TP SCH ×2 (15:02→23:12)
[2018-10-13] MEDS: chlordiazePOXIDE HCL 25 MG CAPSULE PO SCH ×2 (18:32→23:11)
[2018-10-13 21:29] LABS: URINE APPEARANCE SLCLOUDY; URINE BILIRUBIN NEGATIVE (<2.0 mg/dL); URINE COLOR YELLOW; URINE GLUCOSE (UA) NEGATIVE (NEGATIVE); URINE KETONE NEGATIVE (NEGATIVE); URINE LEUK ESTERASE NEGATIVE (NEGATIVE); URINE NITRITE NEGATIVE (NEGATIVE); URINE PROTEIN NEGATIVE (NEGATIVE)
[2018-10-13] MEDS ORDERED: MELATONIN 5 MG TABLETS PO PRN (22:00)
[2018-10-13] MEDS ORDERED: TRIMETHOBENZAMIDE HCL 200MG/2ML INJ IM ONE (22:11)
--- NOTE | 2018-10-13 22:11 | PN ---
YVONNE Progress Note Note: Patient reports that he vomited x 2 Vital Signs Temperature 98.6 F 10/13/18 21:30 Pulse Rate 69 10/13/18 21:30 Respiratory Rate 18 10/13/18 21:30 Blood Pressure 111/59 L 10/13/18 21:30 O2 Sat by Pulse Oximetry (%) Action: Tigan 200mg intramuscular ordered
[2018-10-13] MEDS: THIAMINE HCL 100 MG TABLET (FP) PO SCH (23:12)
[2018-10-13] MEDS: BUDESONIDE/FORMETEROL FUMARATE 160/4.5 mcg INHALER IH SCH (23:19)
[2018-10-14] MEDS ORDERED: ONDANSETRON *ODT* 4 MG TABLET SL ONE (06:44)
[2018-10-14] MEDS: GABAPENTIN 300 MG CAPSULE (FP) PO SCH ×3 (07:18→22:25)
[2018-10-14] MEDS: chlordiazePOXIDE HCL 25 MG CAPSULE PO SCH ×4 (07:18→22:27)
[2018-10-14] MEDS ORDERED: TRIMETHOBENZAMIDE HCL 200MG/2ML INJ IM ONE (09:06)
--- NOTE | 2018-10-14 09:08 | PN ---
S CIWA - CIWA Score Nausea/Vomitin Muscle Tremors: 3 Anxiety: 3 Agitation: 3 Paroxysmal Sweats: 1-Minimal Palms Moist Orientation: 1-Uncertain about Date Tacttile Disturbances: 0-None Auditory Disturbances: 0-None Visual Disturbances: 0-None Headache: 1-Very Mild CIWA-Ar Total Score: 14 S Progress Note (SOAP) Subjective: vomiting after breakfast received zofrain 4 mg around 6 am tigan 200 mg IM x 1 now tremor sweating restlessness anxiety Objective: 10/14/18 09:09 Vital Signs Temperature 98.2 F 10/14/18 06:24 Pulse Rate 78 10/14/18 06:24 Respiratory Rate 18 10/14/18 06:24 Blood Pressure 120/75 10/14/18 06:24 O2 Sat by Pulse Oximetry (%) Laboratory Last Values Urine Color Yellow 10/13/18 15:40 Urine Appearance Slcloudy 10/13/18 15:40 Urine pH 6.0 (5.0-8.0) 10/13/18 15:40 Ur Specific [place] 1.026 (1.010-1.035) 10/13/18 15:40 Urine Protein Negative (NEGATIVE) 10/13/18 15:40 Urine Glucose (UA) Negative (NEGATIVE) 10/13/18 15:40 Urine Ketones Negative (NEGATIVE) 10/13/18 15:40 Urine Blood Negative (NEGATIVE) 10/13/18 15:40 Urine Nitrite Negative (NEGATIVE) 10/13/18 15:40 Urine Bilirubin Negative (<2.0 mg/dL) 10/13/18 15:40 Urine Urobilinogen 2.0 mg/dL (0.2-1.0) 10/13/18 15:40 Ur Leukocyte Esterase Negative (NEGATIVE) 10/13/18 15:40 HIV 1&2 Antibody Screen Negative 10/13/18 12:00 HIV P24 Antigen Negative 10/13/18 12:00 lab noted Assessment: 10/14/18 09:09 alcohol withdrawal sx Plan: continue detox discontinue motrin begin zantac
[2018-10-14 10:42] LABS: HEMATOCRIT 43.2 % (35.4-49); HEMOGLOBIN 14.4 GM/dL (11.7-16.9); MCH 31.3 pg (25.7-33.7); MCHC 33.2 g/dl (32.0-35.9); MEAN CELL VOLUME 94.1 fl (80-96); MEAN PLT VOLUME 10.5 fl (7.5-11.1); PLATELET COUNT 259 K/MM3 (134-434); RBC 4.59 M/mm3 (4.00-5.60); RDW 15.5 % (11.9-15.9); WHITE BLOOD COUNT 4.6 K/mm3 (4.0-10.0)
[2018-10-14] MEDS: RANITIDINE HCL 150 MG TABLET (FP) PO SCH ×2 (10:48→22:25)
[2018-10-14] MEDS: PRENATAL VITAMINS W/ FOLIC ACID TABLET (FP) PO SCH (10:48)
[2018-10-14] MEDS: BACITRACIN 0.9 GM PACKET TP SCH ×2 (10:48→22:25)
[2018-10-14] MEDS: NICOTINE 21 MG/24 HOURS TOPICAL PATCH TD SCH (10:49)
[2018-10-14] MEDS: BUDESONIDE/FORMETEROL FUMARATE 160/4.5 mcg INHALER IH SCH ×2 (10:50→22:27)
[2018-10-14] MEDS: AMMONIUM LACTATE 12% LOTION 225 GM BOTTLE TP SCH ×2 (10:50→22:25)
[2018-10-14 10:52] LABS: ALBUMIN 3.9 g/dl (3.4-5.0); ALK PHOS 90 U/L (45-117); ANION GAP 5 MMOL/L (8-16); BILIRUBIN,TOTAL 0.2 mg/dL (0.2-1); BLOOD UREA NITROGEN 19 mg/dL (7-18); CALCIUM 9.2 mg/dL (8.5-10.1); CHLORIDE 105 mmol/L (98-107); CO2 31 mmol/L (21-32); POTASSIUM 4.5 mmol/L (3.5-5.1); SGOT/AST 19 U/L (15-37); SGPT/ALT 18 U/L (13-61); SODIUM 141 mmol/L (136-145); TOT PROT 6.8 g/dl (6.4-8.2)
[2018-10-14 10:58] LABS: GLUCOSE,RANDOM 41 mg/dL (74-106)
[2018-10-14] MEDS: ACETAMINOPHEN 325 MG TABLET (FP) PO PRN (20:05)
[2018-10-14] MEDS: THIAMINE HCL 100 MG TABLET (FP) PO SCH (22:25)
[2018-10-15] MEDS: chlordiazePOXIDE HCL 25 MG CAPSULE PO SCH ×2 (05:20→14:10)
[2018-10-15] MEDS: GABAPENTIN 300 MG CAPSULE (FP) PO SCH ×3 (05:20→22:13)
[2018-10-15] MEDS: ACETAMINOPHEN 325 MG TABLET (FP) PO PRN ×2 (05:21→15:30)
[2018-10-15] MEDS: BACITRACIN 0.9 GM PACKET TP SCH ×2 (14:09→22:13)
[2018-10-15] MEDS: AMMONIUM LACTATE 12% LOTION 225 GM BOTTLE TP SCH ×2 (14:10→22:15)
[2018-10-15] MEDS: NICOTINE 21 MG/24 HOURS TOPICAL PATCH TD SCH (14:10)
[2018-10-15] MEDS: PRENATAL VITAMINS W/ FOLIC ACID TABLET (FP) PO SCH (14:10)
[2018-10-15] MEDS: RANITIDINE HCL 150 MG TABLET (FP) PO SCH ×2 (14:10→22:13)
[2018-10-15] MEDS: BUDESONIDE/FORMETEROL FUMARATE 160/4.5 mcg INHALER IH SCH ×2 (14:10→22:15)
--- NOTE | 2018-10-15 15:12 | PN ---
S CIWA - CIWA Score Nausea/Vomitin-Mild Nausea/No Vomiting Muscle Tremors: 3 Anxiety: 1-Mildly Anxious Agitation: 2 Paroxysmal Sweats: 1-Minimal Palms Moist Orientation: 1-Uncertain about Date Tacttile Disturbances: 0-None Auditory Disturbances: 0-None Visual Disturbances: 0-None Headache: 1-Very Mild CIWA-Ar Total Score: 10 S Progress Note (SOAP) Subjective: tremor sweating irritable trouble sleep at night Objective: 10/15/18 15:14 Vital Signs Temperature 98.4 F 10/15/18 13:50 Pulse Rate 70 10/15/18 13:50 Respiratory Rate 18 10/15/18 13:50 Blood Pressure 96/70 10/15/18 13:50 O2 Sat by Pulse Oximetry (%) Laboratory Last Values WBC 4.6 K/mm3 (4.0-10.0) 10/14/18 06:00 RBC 4.59 M/mm3 (4.00-5.60) 10/14/18 06:00 Hgb 14.4 GM/dL (11.7-16.9) 10/14/18 06:00 Hct 43.2 % (35.4-49) 10/14/18 06:00 MCV 94.1 fl (80-96) 10/14/18 06:00 MCH 31.3 pg (25.7-33.7) 10/14/18 06:00 MCHC 33.2 g/dl (32.0-35.9) 10/14/18 06:00 RDW 15.5 % (11.9-15.9) 10/14/18 06:00 Plt Count 259 K/MM3 (134-434) 10/14/18 06:00 MPV 10.5 fl (7.5-11.1) 10/14/18 06:00 Sodium 141 mmol/L (136-145) 10/14/18 06:00 Potassium 4.5 mmol/L (3.5-5.1) 10/14/18 06:00 Chloride 105 mmol/L (98-107) 10/14/18 06:00 Carbon Dioxide 31 mmol/L (21-32) 10/14/18 06:00 Anion Gap 5 MMOL/L (8-16) L 10/14/18 06:00 BUN 19 mg/dL (7-18) H 02/13/19 06:00 Creatinine 1.0 mg/dL (0.55-1.3) 10/14/18 06:00 Creat Clearance w eGFR > 60 (>60) 10/14/18 06:00 POC Glucometer 86 UNITS (80-120) 10/15/18 05:23 Random Glucose 41 mg/dL (74-106) L* 10/14/18 06:00 Calcium 9.2 mg/dL (8.5-10.1) 10/14/18 06:00 Total Bilirubin 0.2 mg/dL (0.2-1) 10/14/18 06:00 AST 19 U/L (15-37) 10/14/18 06:00 ALT 18 U/L (13-61) 10/14/18 06:00 Alkaline Phosphatase 90 U/L (45-117) 10/14/18 06:00 Total Protein 6.8 g/dl (6.4-8.2) 10/14/18 06:00 Albumin 3.9 g/dl (3.4-5.0) 10/14/18 06:00 Urine Color Yellow 10/13/18 15:40 Urine Appearance Slcloudy 10/13/18 15:40 Urine pH 6.0 (5.0-8.0) 10/13/18 15:40 Ur Specific [place] 1.026 (1.010-1.035) 10/13/18 15:40 Urine Protein Negative (NEGATIVE) 10/13/18 15:40 Urine Glucose (UA) Negative (NEGATIVE) 10/13/18 15:40 Urine Ketones Negative (NEGATIVE) 10/13/18 15:40 Urine Blood Negative (NEGATIVE) 10/13/18 15:40 Urine Nitrite Negative (NEGATIVE) 10/13/18 15:40 Urine Bilirubin Negative (<2.0 mg/dL) 10/13/18 15:40 Urine Urobilinogen 2.0 mg/dL (0.2-1.0) 10/13/18 15:40 Ur Leukocyte Esterase Negative (NEGATIVE) 10/13/18 15:40 RPR Titer Nonreactive (NONREACTIVE) 10/14/18 06:00 HIV 1&2 Antibody Screen Negative 10/13/18 12:00 HIV P24 Antigen Negative 10/13/18 12:00 lab noted Assessment: 10/15/18 15:14 withdrawal sx Plan: continue detox
[2018-10-15] MEDS: chlordiazePOXIDE 5 MG CAPSULE PO SCH ×2 (17:41→22:13)
[2018-10-15] MEDS: THIAMINE HCL 100 MG TABLET (FP) PO SCH (22:13)
[2018-10-16] MEDS: chlordiazePOXIDE 5 MG CAPSULE PO SCH ×2 (05:49→10:21)
[2018-10-16] MEDS: GABAPENTIN 300 MG CAPSULE (FP) PO SCH ×3 (05:50→22:17)
[2018-10-16] MEDS: PRENATAL VITAMINS W/ FOLIC ACID TABLET (FP) PO SCH (10:21)
[2018-10-16] MEDS: RANITIDINE HCL 150 MG TABLET (FP) PO SCH ×2 (10:21→22:17)
[2018-10-16] MEDS: BACITRACIN 0.9 GM PACKET TP SCH ×2 (10:21→22:17)
[2018-10-16] MEDS: BUDESONIDE/FORMETEROL FUMARATE 160/4.5 mcg INHALER IH SCH ×2 (10:22→23:03)
[2018-10-16] MEDS: NICOTINE 21 MG/24 HOURS TOPICAL PATCH TD SCH (10:22)
[2018-10-16] MEDS: AMMONIUM LACTATE 12% LOTION 225 GM BOTTLE TP SCH ×2 (10:23→22:18)
[2018-10-16] MEDS: METHYL SALICYLATE/MENTHOL OINT 30 GM TUBE TP SCH ×2 (15:25→22:17)
--- NOTE | 2018-10-16 17:39 | PN ---
BHS Progress Note (SOAP) Subjective: Sweating, Body Aches, Fatigue. Objective: PATIENT A & O X 2 (UNCERTAIN ABOUT CURRENT DAY / DATE). IN NO ACUTE DISTRESS. 10/16/18 17:38 Vital Signs Temperature 98.2 F 10/16/18 13:41 Pulse Rate 67 10/16/18 13:41 Respiratory Rate 18 10/16/18 13:41 Blood Pressure 99/64 10/16/18 13:41 O2 Sat by Pulse Oximetry (%) Laboratory Tests 10/13/18 10/13/18 10/14/18 12:00 15:40 06:00 WBC 4.6 RBC 4.59 Hgb 14.4 Hct 43.2 MCV 94.1 MCH 31.3 MCHC 33.2 RDW 15.5 Plt Count 259 MPV 10.5 Sodium Potassium Chloride Carbon Dioxide Anion Gap BUN Creatinine Creat Clearance w eGFR POC Glucometer Random Glucose Calcium Total Bilirubin AST ALT Alkaline Phosphatase Total Protein Albumin Urine Color Yellow Urine Appearance Slcloudy Urine pH 6.0 Ur Specific [place] 1.026 Urine Protein Negative Urine Glucose (UA) Negative Urine Ketones Negative Urine Blood Negative Urine Nitrite Negative Urine Bilirubin Negative Urine Urobilinogen 2.0 Ur Leukocyte Esterase Negative RPR Titer HIV 1&2 Antibody Screen Negative HIV P24 Antigen Negative 10/14/18 10/14/18 10/14/18 06:00 06:00 11:49 WBC RBC Hgb Hct MCV MCH MCHC RDW Plt Count MPV Sodium 141 Potassium 4.5 Chloride 105 Carbon Dioxide 31 Anion Gap 5 L BUN 19 H Creatinine 1.0 Creat Clearance w eGFR > 60 POC Glucometer 97 Random Glucose 41 L* Calcium 9.2 Total Bilirubin 0.2 AST 19 ALT 18 Alkaline Phosphatase 90 Total Protein 6.8 Albumin 3.9 Urine Color Urine Appearance Urine pH Ur Specific [place] Urine Protein Urine Glucose (UA) Urine Ketones Urine Blood Urine Nitrite Urine Bilirubin Urine Urobilinogen Ur Leukocyte Esterase RPR Titer Nonreactive HIV 1&2 Antibody Screen HIV P24 Antigen 10/15/18 05:23 WBC RBC Hgb Hct MCV MCH MCHC RDW Plt Count MPV Sodium Potassium Chloride Carbon Dioxide Anion Gap BUN Creatinine Creat Clearance w eGFR POC Glucometer 86 Random Glucose Calcium Total Bilirubin AST ALT Alkaline Phosphatase Total Protein Albumin Urine Color Urine Appearance Urine pH Ur Specific [place] Urine Protein Urine Glucose (UA) Urine Ketones Urine Blood Urine Nitrite Urine Bilirubin Urine Urobilinogen Ur Leukocyte Esterase RPR Titer HIV 1&2 Antibody Screen HIV P24 Antigen LABS NOTED. Assessment: 10/16/18 17:39 WITHDRAWAL SYMPTOMS. Plan: CONTINUE DETOX. PATIENT SCHEDULED FOR D/C TOMORROW .
[2018-10-16] MEDS: chlordiazePOXIDE HCL 10 MG CAPSULE PO SCH ×2 (18:00→22:17)
[2018-10-16] MEDS: THIAMINE HCL 100 MG TABLET (FP) PO SCH (23:03)
[2018-10-17] MEDS: chlordiazePOXIDE HCL 10 MG CAPSULE PO SCH ×2 (06:06→10:42)
[2018-10-17] MEDS: GABAPENTIN 300 MG CAPSULE (FP) PO SCH ×3 (06:06→22:22)
[2018-10-17] MEDS: BACITRACIN 0.9 GM PACKET TP SCH ×2 (10:41→22:21)
[2018-10-17] MEDS: RANITIDINE HCL 150 MG TABLET (FP) PO SCH ×2 (10:42→22:22)
[2018-10-17] MEDS: ACETAMINOPHEN 325 MG TABLET (FP) PO PRN (10:42)
[2018-10-17] MEDS: PRENATAL VITAMINS W/ FOLIC ACID TABLET (FP) PO SCH (10:42)
[2018-10-17] MEDS: NICOTINE 21 MG/24 HOURS TOPICAL PATCH TD SCH (10:43)
[2018-10-17] MEDS: BUDESONIDE/FORMETEROL FUMARATE 160/4.5 mcg INHALER IH SCH ×2 (10:43→22:22)
[2018-10-17] MEDS: AMMONIUM LACTATE 12% LOTION 225 GM BOTTLE TP SCH ×2 (10:44→22:21)
[2018-10-17] MEDS: METHYL SALICYLATE/MENTHOL OINT 30 GM TUBE TP SCH ×2 (10:44→22:22)
--- NOTE | 2018-10-17 15:14 | PN ---
BHS Progress Note (SOAP) Subjective: Sweating, Body Aches, Fatigue, Runny Nose. Objective: PATIENT A & O X 3, OBSERVED AMBULATING ON UNIT. IN NO ACUTE DISTRESS. 10/17/18 15:12 Vital Signs Temperature 97.6 F 10/17/18 14:42 Pulse Rate 61 10/17/18 14:42 Respiratory Rate 20 10/17/18 14:42 Blood Pressure 98/62 10/17/18 14:42 O2 Sat by Pulse Oximetry (%) Laboratory Tests 10/13/18 10/13/18 10/14/18 12:00 15:40 06:00 WBC 4.6 RBC 4.59 Hgb 14.4 Hct 43.2 MCV 94.1 MCH 31.3 MCHC 33.2 RDW 15.5 Plt Count 259 MPV 10.5 Sodium Potassium Chloride Carbon Dioxide Anion Gap BUN Creatinine Creat Clearance w eGFR POC Glucometer Random Glucose Calcium Total Bilirubin AST ALT Alkaline Phosphatase Total Protein Albumin Urine Color Yellow Urine Appearance Slcloudy Urine pH 6.0 Ur Specific [place] 1.026 Urine Protein Negative Urine Glucose (UA) Negative Urine Ketones Negative Urine Blood Negative Urine Nitrite Negative Urine Bilirubin Negative Urine Urobilinogen 2.0 Ur Leukocyte Esterase Negative RPR Titer HIV 1&2 Antibody Screen Negative HIV P24 Antigen Negative 10/14/18 10/14/18 10/14/18 06:00 06:00 11:49 WBC RBC Hgb Hct MCV MCH MCHC RDW Plt Count MPV Sodium 141 Potassium 4.5 Chloride 105 Carbon Dioxide 31 Anion Gap 5 L BUN 19 H Creatinine 1.0 Creat Clearance w eGFR > 60 POC Glucometer 97 Random Glucose 41 L* Calcium 9.2 Total Bilirubin 0.2 AST 19 ALT 18 Alkaline Phosphatase 90 Total Protein 6.8 Albumin 3.9 Urine Color Urine Appearance Urine pH Ur Specific [place] Urine Protein Urine Glucose (UA) Urine Ketones Urine Blood Urine Nitrite Urine Bilirubin Urine Urobilinogen Ur Leukocyte Esterase RPR Titer Nonreactive HIV 1&2 Antibody Screen HIV P24 Antigen 10/15/18 05:23 WBC RBC Hgb Hct MCV MCH MCHC RDW Plt Count MPV Sodium Potassium Chloride Carbon Dioxide Anion Gap BUN Creatinine Creat Clearance w eGFR POC Glucometer 86 Random Glucose Calcium Total Bilirubin AST ALT Alkaline Phosphatase Total Protein Albumin Urine Color Urine Appearance Urine pH Ur Specific [place] Urine Protein Urine Glucose (UA) Urine Ketones Urine Blood Urine Nitrite Urine Bilirubin Urine Urobilinogen Ur Leukocyte Esterase RPR Titer HIV 1&2 Antibody Screen HIV P24 Antigen LABS NOTED. Assessment: 10/17/18 15:13 WITHDRAWAL SYMPTOMS. Plan: CONTINUE DETOX. INCREASE DAILY PO FLUID INTAKE. DUE TO LINGERING WITHDRAWAL SYMPTOMS, PATIENT PERMITTED TO REMAIN ON DETOX UNIT FOR TODAY, TO BE RE-EVALUATED FOR FORTHCOMING MEDICAL CARE TOMORROW AM COVERING MEDICAL PROVIDER AT THAT TIME.
[2018-10-17] MEDS: THIAMINE HCL 100 MG TABLET (FP) PO SCH (22:21)
[2018-10-18] MEDS: GABAPENTIN 300 MG CAPSULE (FP) PO SCH ×3 (07:15→22:30)
[2018-10-18] MEDS: RANITIDINE HCL 150 MG TABLET (FP) PO SCH ×2 (10:27→22:30)
[2018-10-18] MEDS: BACITRACIN 0.9 GM PACKET TP SCH ×2 (10:27→22:29)
[2018-10-18] MEDS: PRENATAL VITAMINS W/ FOLIC ACID TABLET (FP) PO SCH (10:27)
[2018-10-18] MEDS: METHYL SALICYLATE/MENTHOL OINT 30 GM TUBE TP SCH ×2 (10:28→22:29)
[2018-10-18] MEDS: BUDESONIDE/FORMETEROL FUMARATE 160/4.5 mcg INHALER IH SCH ×2 (10:28→22:30)
[2018-10-18] MEDS: AMMONIUM LACTATE 12% LOTION 225 GM BOTTLE TP SCH ×2 (10:28→22:29)
[2018-10-18] MEDS: NICOTINE 21 MG/24 HOURS TOPICAL PATCH TD SCH (10:29)
--- NOTE | 2018-10-18 12:25 | PN ---
S CIWA - CIWA Score Nausea/Vomitin-No Nausea/No Vomiting Muscle Tremors: 1-None Visible, but [place] Anxiety: 0-No Anxiety, at Ease Agitation: 1-Slight > Activity Paroxysmal Sweats: No Perspiration Orientation: 0-Oriented Tacttile Disturbances: 0-None Auditory Disturbances: 0-None Visual Disturbances: 0-None Headache: 0-None Present CIWA-Ar Total Score: 2 BHS Progress Note (SOAP) Subjective: according to the counselor that the patient is going to be discharged [facility] to [facility] due to insurance granted stay in detox extra days while waiting for rehab bed Objective: 10/18/18 12:27 Vital Signs Temperature 96.4 F L 10/18/18 09:35 Pulse Rate 60 10/18/18 09:35 Respiratory Rate 18 10/18/18 09:35 Blood Pressure 94/62 10/18/18 09:35 O2 Sat by Pulse Oximetry (%) Laboratory Last Values WBC 4.6 K/mm3 (4.0-10.0) 10/14/18 06:00 RBC 4.59 M/mm3 (4.00-5.60) 10/14/18 06:00 Hgb 14.4 GM/dL (11.7-16.9) 10/14/18 06:00 Hct 43.2 % (35.4-49) 10/14/18 06:00 MCV 94.1 fl (80-96) 10/14/18 06:00 MCH 31.3 pg (25.7-33.7) 10/14/18 06:00 MCHC 33.2 g/dl (32.0-35.9) 10/14/18 06:00 RDW 15.5 % (11.9-15.9) 10/14/18 06:00 Plt Count 259 K/MM3 (134-434) 10/14/18 06:00 MPV 10.5 fl (7.5-11.1) 10/14/18 06:00 Sodium 141 mmol/L (136-145) 10/14/18 06:00 Potassium 4.5 mmol/L (3.5-5.1) 10/14/18 06:00 Chloride 105 mmol/L (98-107) 10/14/18 06:00 Carbon Dioxide 31 mmol/L (21-32) 10/14/18 06:00 Anion Gap 5 MMOL/L (8-16) L 10/14/18 06:00 BUN 19 mg/dL (7-18) H 10/14/18 06:00 Creatinine 1.0 mg/dL (0.55-1.3) 10/14/18 06:00 Creat Clearance w eGFR > 60 (>60) 10/14/18 06:00 POC Glucometer 86 UNITS (80-120) 10/15/18 05:23 Random Glucose 41 mg/dL (74-106) L* 10/14/18 06:00 Calcium 9.2 mg/dL (8.5-10.1) 10/14/18 06:00 Total Bilirubin 0.2 mg/dL (0.2-1) 10/14/18 06:00 AST 19 U/L (15-37) 10/14/18 06:00 ALT 18 U/L (13-61) 10/14/18 06:00 Alkaline Phosphatase 90 U/L (45-117) 10/14/18 06:00 Total Protein 6.8 g/dl (6.4-8.2) 10/14/18 06:00 Albumin 3.9 g/dl (3.4-5.0) 10/14/18 06:00 Urine Color Yellow 10/13/18 15:40 Urine Appearance Slcloudy 10/13/18 15:40 Urine pH 6.0 (5.0-8.0) 10/13/18 15:40 Ur Specific [place] 1.026 (1.010-1.035) 10/13/18 15:40 Urine Protein Negative (NEGATIVE) 10/13/18 15:40 Urine Glucose (UA) Negative (NEGATIVE) 10/13/18 15:40 Urine Ketones Negative (NEGATIVE) 10/13/18 15:40 Urine Blood Negative (NEGATIVE) 10/13/18 15:40 Urine Nitrite Negative (NEGATIVE) 10/13/18 15:40 Urine Bilirubin Negative (<2.0 mg/dL) 10/13/18 15:40 Urine Urobilinogen 2.0 mg/dL (0.2-1.0) 10/13/18 15:40 Ur Leukocyte Esterase Negative (NEGATIVE) 10/13/18 15:40 RPR Titer Nonreactive (NONREACTIVE) 10/14/18 06:00 HIV 1&2 Antibody Screen Negative 10/13/18 12:00 HIV P24 Antigen Negative 10/13/18 12:00 lab noted Assessment: 10/18/18 12:28 relapse prevention Plan: coping strategies
[2018-10-18] MEDS: THIAMINE HCL 100 MG TABLET (FP) PO SCH (22:30)
[2018-10-18] MEDS: ACETAMINOPHEN 325 MG TABLET (FP) PO PRN (22:31)
[2018-10-19] MEDS: GABAPENTIN 300 MG CAPSULE (FP) PO SCH ×3 (06:02→21:54)
[2018-10-19] MEDS: RANITIDINE HCL 150 MG TABLET (FP) PO SCH ×2 (10:56→21:54)
[2018-10-19] MEDS: BACITRACIN 0.9 GM PACKET TP SCH ×2 (10:56→21:55)
[2018-10-19] MEDS: BUDESONIDE/FORMETEROL FUMARATE 160/4.5 mcg INHALER IH SCH ×2 (10:56→21:57)
[2018-10-19] MEDS: PRENATAL VITAMINS W/ FOLIC ACID TABLET (FP) PO SCH (10:57)
[2018-10-19] MEDS: NICOTINE 21 MG/24 HOURS TOPICAL PATCH TD SCH (10:57)
[2018-10-19] MEDS: AMMONIUM LACTATE 12% LOTION 225 GM BOTTLE TP SCH ×2 (10:58→21:57)
[2018-10-19] MEDS: METHYL SALICYLATE/MENTHOL OINT 30 GM TUBE TP SCH ×2 (10:58→21:55)
--- NOTE | 2018-10-19 13:25 | HP ---
YVONNE DEE Rehab Assess/Revision - Admission History Admitted to Rehab from: [facility] Date of Admission to Rehab: 10/18/18 - Vital signs Vital Signs: Vital Signs Period Temp Pulse Resp BP Sys/Menendez Pulse Ox Last 24 Hr 96.4 F-97.5 F 58-65 18-19 95-111/51-65 - Findings Detox History & Physical reviewed: Yes Concur with findings: Yes Comments/Additional Findings: transferred from detox to rehab admission as per protocol Inpatient Rehab Admission - Rehab Decision to Admit Inpatient rehab admission?: Yes - Initial Determination Are CD services needed?: Yes Free of communicable disease: Yes Not in need of hospitalization: Yes - Rehab Admission Criteria Previous failed treatment: Yes Poor recovery environment: Yes Comorbidities: Yes Lacks judgement: No Patient is meeting Inpatient Rehab admission criteria:: Yes
[2018-10-19] MEDS: CLOTRIMAZOLE 1% CREAM 15 GM TUBE TP SCH ×2 (14:29→23:00)
[2018-10-19] MEDS: THIAMINE HCL 100 MG TABLET (FP) PO SCH (21:54)
[2018-10-20] MEDS: GABAPENTIN 300 MG CAPSULE (FP) PO SCH ×3 (06:58→21:57)
[2018-10-20] MEDS: RANITIDINE HCL 150 MG TABLET (FP) PO SCH ×2 (10:27→21:57)
[2018-10-20] MEDS: PRENATAL VITAMINS W/ FOLIC ACID TABLET (FP) PO SCH (10:27)
[2018-10-20] MEDS: BACITRACIN 0.9 GM PACKET TP SCH ×2 (10:27→21:57)
[2018-10-20] MEDS: NICOTINE 21 MG/24 HOURS TOPICAL PATCH TD SCH (10:28)
[2018-10-20] MEDS: AMMONIUM LACTATE 12% LOTION 225 GM BOTTLE TP SCH ×2 (10:29→22:01)
[2018-10-20] MEDS: CLOTRIMAZOLE 1% CREAM 15 GM TUBE TP SCH ×2 (10:29→22:01)
[2018-10-20] MEDS: METHYL SALICYLATE/MENTHOL OINT 30 GM TUBE TP SCH ×2 (10:29→22:02)
[2018-10-20] MEDS: BUDESONIDE/FORMETEROL FUMARATE 160/4.5 mcg INHALER IH SCH ×2 (10:30→22:00)
[2018-10-20] MEDS: THIAMINE HCL 100 MG TABLET (FP) PO SCH (21:58)
[2018-10-21] MEDS: GABAPENTIN 300 MG CAPSULE (FP) PO SCH ×3 (06:15→21:42)
[2018-10-21] MEDS: NICOTINE 21 MG/24 HOURS TOPICAL PATCH TD SCH (10:39)
[2018-10-21] MEDS: RANITIDINE HCL 150 MG TABLET (FP) PO SCH ×2 (10:39→21:42)
[2018-10-21] MEDS: AMMONIUM LACTATE 12% LOTION 225 GM BOTTLE TP SCH ×2 (10:39→21:44)
[2018-10-21] MEDS: PRENATAL VITAMINS W/ FOLIC ACID TABLET (FP) PO SCH (10:40)
[2018-10-21] MEDS: CLOTRIMAZOLE 1% CREAM 15 GM TUBE TP SCH ×2 (10:40→21:44)
[2018-10-21] MEDS: BUDESONIDE/FORMETEROL FUMARATE 160/4.5 mcg INHALER IH SCH ×2 (10:41→21:43)
[2018-10-21] MEDS: BACITRACIN 0.9 GM PACKET TP SCH ×2 (10:41→21:42)
[2018-10-21] MEDS: METHYL SALICYLATE/MENTHOL OINT 30 GM TUBE TP SCH ×2 (10:43→21:45)
[2018-10-21] MEDS: THIAMINE HCL 100 MG TABLET (FP) PO SCH (21:41)
[2018-10-22] MEDS: GABAPENTIN 300 MG CAPSULE (FP) PO SCH ×3 (07:05→21:40)
[2018-10-22] MEDS: RANITIDINE HCL 150 MG TABLET (FP) PO SCH ×2 (10:33→21:40)
[2018-10-22] MEDS: PRENATAL VITAMINS W/ FOLIC ACID TABLET (FP) PO SCH (10:34)
[2018-10-22] MEDS: BACITRACIN 0.9 GM PACKET TP SCH ×3 (10:34→21:39)
[2018-10-22] MEDS: NICOTINE 21 MG/24 HOURS TOPICAL PATCH TD SCH (10:34)
[2018-10-22] MEDS: BUDESONIDE/FORMETEROL FUMARATE 160/4.5 mcg INHALER IH SCH ×2 (10:34→21:40)
[2018-10-22] MEDS: AMMONIUM LACTATE 12% LOTION 225 GM BOTTLE TP SCH ×2 (10:36→21:41)
[2018-10-22] MEDS: METHYL SALICYLATE/MENTHOL OINT 30 GM TUBE TP SCH ×2 (10:36→21:41)
[2018-10-22] MEDS: CLOTRIMAZOLE 1% CREAM 15 GM TUBE TP SCH ×2 (10:36→21:41)
[2018-10-22] MEDS: THIAMINE HCL 100 MG TABLET (FP) PO SCH (21:39)
[2018-10-23] MEDS: GABAPENTIN 300 MG CAPSULE (FP) PO SCH ×3 (06:40→21:35)
[2018-10-23] MEDS: NICOTINE 21 MG/24 HOURS TOPICAL PATCH TD SCH (10:18)
[2018-10-23] MEDS: BACITRACIN 0.9 GM PACKET TP SCH ×2 (10:18→21:36)
[2018-10-23] MEDS: BUDESONIDE/FORMETEROL FUMARATE 160/4.5 mcg INHALER IH SCH ×2 (10:18→21:35)
[2018-10-23] MEDS: PRENATAL VITAMINS W/ FOLIC ACID TABLET (FP) PO SCH (10:18)
[2018-10-23] MEDS: AMMONIUM LACTATE 12% LOTION 225 GM BOTTLE TP SCH ×2 (10:19→21:36)
[2018-10-23] MEDS: CLOTRIMAZOLE 1% CREAM 15 GM TUBE TP SCH ×2 (10:20→21:36)
[2018-10-23] MEDS: METHYL SALICYLATE/MENTHOL OINT 30 GM TUBE TP SCH ×2 (10:20→21:36)
[2018-10-23] MEDS: RANITIDINE HCL 150 MG TABLET (FP) PO SCH ×2 (10:20→21:35)
[2018-10-23] MEDS: THIAMINE HCL 100 MG TABLET (FP) PO SCH (21:35)
[2018-10-24] MEDS: GABAPENTIN 300 MG CAPSULE (FP) PO SCH ×3 (06:34→21:49)
[2018-10-24] MEDS: BACITRACIN 0.9 GM PACKET TP SCH ×2 (10:03→21:49)
[2018-10-24] MEDS: METHYL SALICYLATE/MENTHOL OINT 30 GM TUBE TP SCH ×2 (10:03→21:50)
[2018-10-24] MEDS: PRENATAL VITAMINS W/ FOLIC ACID TABLET (FP) PO SCH (10:04)
[2018-10-24] MEDS: BUDESONIDE/FORMETEROL FUMARATE 160/4.5 mcg INHALER IH SCH ×2 (10:04→21:50)
[2018-10-24] MEDS: CLOTRIMAZOLE 1% CREAM 15 GM TUBE TP SCH ×2 (10:04→21:50)
[2018-10-24] MEDS: NICOTINE 21 MG/24 HOURS TOPICAL PATCH TD SCH (10:04)
[2018-10-24] MEDS: AMMONIUM LACTATE 12% LOTION 225 GM BOTTLE TP SCH ×2 (10:04→21:50)
[2018-10-24] MEDS: RANITIDINE HCL 150 MG TABLET (FP) PO SCH ×2 (10:05→21:49)
[2018-10-24] MEDS: THIAMINE HCL 100 MG TABLET (FP) PO SCH (21:49)
[2018-10-25] MEDS: GABAPENTIN 300 MG CAPSULE (FP) PO SCH ×3 (06:41→21:52)
[2018-10-25] MEDS: PRENATAL VITAMINS W/ FOLIC ACID TABLET (FP) PO SCH (10:28)
[2018-10-25] MEDS: RANITIDINE HCL 150 MG TABLET (FP) PO SCH ×2 (10:28→21:52)
[2018-10-25] MEDS: BUDESONIDE/FORMETEROL FUMARATE 160/4.5 mcg INHALER IH SCH ×2 (10:28→21:51)
[2018-10-25] MEDS: METHYL SALICYLATE/MENTHOL OINT 30 GM TUBE TP SCH ×2 (10:28→21:52)
[2018-10-25] MEDS: NICOTINE 21 MG/24 HOURS TOPICAL PATCH TD SCH (10:29)
[2018-10-25] MEDS: BACITRACIN 0.9 GM PACKET TP SCH ×2 (10:29→21:53)
[2018-10-25] MEDS: AMMONIUM LACTATE 12% LOTION 225 GM BOTTLE TP SCH ×2 (10:29→21:52)
[2018-10-25] MEDS: CLOTRIMAZOLE 1% CREAM 15 GM TUBE TP SCH ×2 (10:29→21:52)
[2018-10-25] MEDS: THIAMINE HCL 100 MG TABLET (FP) PO SCH (21:52)
[2018-10-26] MEDS: GABAPENTIN 300 MG CAPSULE (FP) PO SCH ×3 (06:10→22:02)
[2018-10-26] MEDS: PRENATAL VITAMINS W/ FOLIC ACID TABLET (FP) PO SCH (10:39)
[2018-10-26] MEDS: RANITIDINE HCL 150 MG TABLET (FP) PO SCH ×2 (10:39→22:02)
[2018-10-26] MEDS: METHYL SALICYLATE/MENTHOL OINT 30 GM TUBE TP SCH ×2 (10:40→22:03)
[2018-10-26] MEDS: BACITRACIN 0.9 GM PACKET TP SCH ×2 (10:40→22:03)
[2018-10-26] MEDS: NICOTINE 21 MG/24 HOURS TOPICAL PATCH TD SCH (10:40)
[2018-10-26] MEDS: BUDESONIDE/FORMETEROL FUMARATE 160/4.5 mcg INHALER IH SCH ×2 (10:40→22:02)
[2018-10-26] MEDS: AMMONIUM LACTATE 12% LOTION 225 GM BOTTLE TP SCH ×2 (10:41→22:03)
[2018-10-26] MEDS: CLOTRIMAZOLE 1% CREAM 15 GM TUBE TP SCH ×2 (10:41→22:03)
[2018-10-26] MEDS: THIAMINE HCL 100 MG TABLET (FP) PO SCH (22:02)
[2018-10-27] MEDS: GABAPENTIN 300 MG CAPSULE (FP) PO SCH ×3 (06:38→21:50)
[2018-10-27] MEDS: AMMONIUM LACTATE 12% LOTION 225 GM BOTTLE TP SCH ×2 (10:39→21:51)
[2018-10-27] MEDS: METHYL SALICYLATE/MENTHOL OINT 30 GM TUBE TP SCH ×2 (10:39→21:51)
[2018-10-27] MEDS: BACITRACIN 0.9 GM PACKET TP SCH ×2 (10:39→21:51)
[2018-10-27] MEDS: PRENATAL VITAMINS W/ FOLIC ACID TABLET (FP) PO SCH (10:40)
[2018-10-27] MEDS: NICOTINE 21 MG/24 HOURS TOPICAL PATCH TD SCH (10:40)
[2018-10-27] MEDS: RANITIDINE HCL 150 MG TABLET (FP) PO SCH ×2 (10:40→21:50)
[2018-10-27] MEDS: CLOTRIMAZOLE 1% CREAM 15 GM TUBE TP SCH ×2 (10:40→21:51)
[2018-10-27] MEDS: BUDESONIDE/FORMETEROL FUMARATE 160/4.5 mcg INHALER IH SCH ×2 (10:40→21:50)
[2018-10-27] MEDS: THIAMINE HCL 100 MG TABLET (FP) PO SCH (21:50)
[2018-10-28] MEDS: GABAPENTIN 300 MG CAPSULE (FP) PO SCH ×3 (06:35→21:39)
[2018-10-28] MEDS: AMMONIUM LACTATE 12% LOTION 225 GM BOTTLE TP SCH ×2 (10:32→21:40)
[2018-10-28] MEDS: BACITRACIN 0.9 GM PACKET TP SCH ×2 (10:32→21:40)
[2018-10-28] MEDS: RANITIDINE HCL 150 MG TABLET (FP) PO SCH ×2 (10:32→21:39)
[2018-10-28] MEDS: NICOTINE 21 MG/24 HOURS TOPICAL PATCH TD SCH (10:32)
[2018-10-28] MEDS: CLOTRIMAZOLE 1% CREAM 15 GM TUBE TP SCH ×2 (10:32→21:40)
[2018-10-28] MEDS: BUDESONIDE/FORMETEROL FUMARATE 160/4.5 mcg INHALER IH SCH ×2 (10:32→21:40)
[2018-10-28] MEDS: METHYL SALICYLATE/MENTHOL OINT 30 GM TUBE TP SCH ×2 (10:32→21:40)
[2018-10-28] MEDS: PRENATAL VITAMINS W/ FOLIC ACID TABLET (FP) PO SCH (10:32)
[2018-10-28] MEDS: THIAMINE HCL 100 MG TABLET (FP) PO SCH (21:39)
[2018-10-29] MEDS: GABAPENTIN 300 MG CAPSULE (FP) PO SCH ×3 (06:28→21:42)
[2018-10-29] MEDS: BUDESONIDE/FORMETEROL FUMARATE 160/4.5 mcg INHALER IH SCH ×2 (10:31→21:42)
[2018-10-29] MEDS: CLOTRIMAZOLE 1% CREAM 15 GM TUBE TP SCH ×2 (10:31→21:42)
[2018-10-29] MEDS: RANITIDINE HCL 150 MG TABLET (FP) PO SCH ×2 (10:31→21:42)
[2018-10-29] MEDS: PRENATAL VITAMINS W/ FOLIC ACID TABLET (FP) PO SCH (10:31)
[2018-10-29] MEDS: AMMONIUM LACTATE 12% LOTION 225 GM BOTTLE TP SCH ×2 (10:32→21:42)
[2018-10-29] MEDS: BACITRACIN 0.9 GM PACKET TP SCH ×2 (10:32→21:42)
[2018-10-29] MEDS: METHYL SALICYLATE/MENTHOL OINT 30 GM TUBE TP SCH ×2 (10:32→21:42)
[2018-10-29] MEDS: NICOTINE 21 MG/24 HOURS TOPICAL PATCH TD SCH (10:32)
[2018-10-29] MEDS: THIAMINE HCL 100 MG TABLET (FP) PO SCH (21:42)
[2018-10-30] MEDS: GABAPENTIN 300 MG CAPSULE (FP) PO SCH ×3 (06:16→21:46)
[2018-10-30] MEDS: RANITIDINE HCL 150 MG TABLET (FP) PO SCH ×2 (10:28→21:46)
[2018-10-30] MEDS: PRENATAL VITAMINS W/ FOLIC ACID TABLET (FP) PO SCH (10:28)
[2018-10-30] MEDS: AMMONIUM LACTATE 12% LOTION 225 GM BOTTLE TP SCH ×2 (10:30→21:47)
[2018-10-30] MEDS: NICOTINE 21 MG/24 HOURS TOPICAL PATCH TD SCH (10:30)
[2018-10-30] MEDS: METHYL SALICYLATE/MENTHOL OINT 30 GM TUBE TP SCH ×2 (10:30→21:47)
[2018-10-30] MEDS: CLOTRIMAZOLE 1% CREAM 15 GM TUBE TP SCH ×2 (10:30→21:47)
[2018-10-30] MEDS: BUDESONIDE/FORMETEROL FUMARATE 160/4.5 mcg INHALER IH SCH ×2 (10:31→21:47)
[2018-10-30] MEDS: BACITRACIN 0.9 GM PACKET TP SCH ×2 (10:58→21:46)
[2018-10-30] MEDS: THIAMINE HCL 100 MG TABLET (FP) PO SCH (21:46)
[2018-10-31] MEDS: GABAPENTIN 300 MG CAPSULE (FP) PO SCH ×3 (06:22→21:46)
[2018-10-31] MEDS: METHYL SALICYLATE/MENTHOL OINT 30 GM TUBE TP SCH ×2 (10:41→21:46)
[2018-10-31] MEDS: AMMONIUM LACTATE 12% LOTION 225 GM BOTTLE TP SCH ×2 (10:41→21:46)
[2018-10-31] MEDS: CLOTRIMAZOLE 1% CREAM 15 GM TUBE TP SCH ×2 (10:41→21:46)
[2018-10-31] MEDS: NICOTINE 21 MG/24 HOURS TOPICAL PATCH TD SCH (10:41)
[2018-10-31] MEDS: BACITRACIN 0.9 GM PACKET TP SCH ×2 (10:41→21:46)
[2018-10-31] MEDS: PRENATAL VITAMINS W/ FOLIC ACID TABLET (FP) PO SCH (10:43)
[2018-10-31] MEDS: BUDESONIDE/FORMETEROL FUMARATE 160/4.5 mcg INHALER IH SCH ×2 (10:44→21:46)
[2018-10-31] MEDS: RANITIDINE HCL 150 MG TABLET (FP) PO SCH ×2 (10:45→21:46)
[2018-10-31] MEDS: THIAMINE HCL 100 MG TABLET (FP) PO SCH (21:46)
[2018-10-31] MEDS: ACETAMINOPHEN 325 MG TABLET (FP) PO PRN (22:03)
[2018-11-01] MEDS: GABAPENTIN 300 MG CAPSULE (FP) PO SCH ×3 (07:29→21:46)
[2018-11-01] MEDS: PRENATAL VITAMINS W/ FOLIC ACID TABLET (FP) PO SCH (10:19)
[2018-11-01] MEDS: AMMONIUM LACTATE 12% LOTION 225 GM BOTTLE TP SCH ×2 (10:20→21:48)
[2018-11-01] MEDS: CLOTRIMAZOLE 1% CREAM 15 GM TUBE TP SCH ×2 (10:20→21:48)
[2018-11-01] MEDS: NICOTINE 21 MG/24 HOURS TOPICAL PATCH TD SCH (10:20)
[2018-11-01] MEDS: METHYL SALICYLATE/MENTHOL OINT 30 GM TUBE TP SCH ×2 (10:21→21:48)
[2018-11-01] MEDS: BUDESONIDE/FORMETEROL FUMARATE 160/4.5 mcg INHALER IH SCH ×2 (10:23→21:47)
[2018-11-01] MEDS: BACITRACIN 0.9 GM PACKET TP SCH ×2 (10:24→21:46)
[2018-11-01] MEDS: RANITIDINE HCL 150 MG TABLET (FP) PO SCH ×2 (10:25→21:46)
[2018-11-01] MEDS: ACETAMINOPHEN 325 MG TABLET (FP) PO PRN ×2 (15:53→21:47)
[2018-11-01] MEDS: THIAMINE HCL 100 MG TABLET (FP) PO SCH (21:46)
[2018-11-02] MEDS: GABAPENTIN 300 MG CAPSULE (FP) PO SCH (06:15)
[2018-11-02] MEDS: ACETAMINOPHEN 325 MG TABLET (FP) PO PRN (06:23)
[2018-11-02 07:28] VITALS: BP 105/57; PULSE 53; TEMP 97.6
[2018-11-02] MEDS: PRENATAL VITAMINS W/ FOLIC ACID TABLET (FP) PO SCH (09:58)
[2018-11-02] MEDS: NICOTINE 21 MG/24 HOURS TOPICAL PATCH TD SCH (09:58)
[2018-11-02] MEDS: BUDESONIDE/FORMETEROL FUMARATE 160/4.5 mcg INHALER IH SCH (10:00)
[2018-11-02] MEDS: BACITRACIN 0.9 GM PACKET TP SCH (10:00)
[2018-11-02] MEDS: RANITIDINE HCL 150 MG TABLET (FP) PO SCH (10:00)
[2018-11-02] MEDS: METHYL SALICYLATE/MENTHOL OINT 30 GM TUBE TP SCH (10:02)
[2018-11-02] MEDS: CLOTRIMAZOLE 1% CREAM 15 GM TUBE TP SCH (10:02)
[2018-11-02] MEDS: AMMONIUM LACTATE 12% LOTION 225 GM BOTTLE TP SCH (10:02)
--- NOTE | 2018-11-02 11:54 | PN ---
[facility] Progress Note Note: PT COMPLETED REHAB AND DISCHARGED TODAY.PT MET WITH HIS COUNSELOR TISH LE AND WAS REFERRED TO [facility] CD [facility]GRAM FOR AFTERCARE. PT REPORTS HE HAS NO PCP AT MOMENT SINCE HIS FORMER RETIRED. PT STATES HE WILL CALL THE PCP ON HIS CURRENT INSURANCE CARD TO FOLLOW UP WITH MEDICAL MANAGEMENT. 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 HAS OWN ALBUTEROL INHALER. PT IS ALERT O X 3. DENIES S/H/I. Home Medications Medication Instructions Recorded Albuterol Sulfate Inhaler - 2 puff IH Q4H PRN #1 inhaler 10/17/18 [Ventolin HFA Inhaler -] Gabapentin [Neurontin -] 300 mg PO TID #90 capsule 11/02/18 Ranitidine [Zantac -] 150 mg PO BID #30 tablet 11/02/18 Vital Signs (72 hours) 10/31/18 10/31/18 10/31/18 00:30 03:30 07:06 Temperature 98.0 F Pulse Rate 59 L Respiratory 18 18 16 Rate Blood Pressure 100/52 L 11/01/18 11/01/18 11/01/18 00:30 03:30 07:14 Temperature 97.3 F L Pulse Rate 55 L Respiratory 18 18 17 Rate Blood Pressure 114/69 11/02/18 11/02/18 11/02/18 00:30 03:30 07:27 Temperature 97.6 F Pulse Rate 53 L Respiratory 18 18 18 Rate Blood Pressure 105/57 L Laboratory Tests 10/13/18 10/13/18 10/14/18 12:00 15:40 06:00 WBC 4.6 RBC 4.59 Hgb 14.4 Hct 43.2 MCV 94.1 MCH 31.3 MCHC 33.2 RDW 15.5 Plt Count 259 MPV 10.5 Sodium Potassium Chloride Carbon Dioxide Anion Gap BUN Creatinine Creat Clearance w eGFR POC Glucometer Random Glucose Calcium Total Bilirubin AST ALT Alkaline Phosphatase Total Protein Albumin Urine Color Yellow Urine Appearance Slcloudy Urine pH 6.0 Ur Specific [place] 1.026 Urine Protein Negative Urine Glucose (UA) Negative Urine Ketones Negative Urine Blood Negative Urine Nitrite Negative Urine Bilirubin Negative Urine Urobilinogen 2.0 Ur Leukocyte Esterase Negative RPR Titer HIV 1&2 Antibody Screen Negative HIV P24 Antigen Negative 10/14/18 10/14/18 10/14/18 06:00 06:00 11:49 WBC RBC Hgb Hct MCV MCH MCHC RDW Plt Count MPV Sodium 141 Potassium 4.5 Chloride 105 Carbon Dioxide 31 Anion Gap 5 L BUN 19 H Creatinine 1.0 Creat Clearance w eGFR > 60 POC Glucometer 97 Random Glucose 41 L* Calcium 9.2 Total Bilirubin 0.2 AST 19 ALT 18 Alkaline Phosphatase 90 Total Protein 6.8 Albumin 3.9 Urine Color Urine Appearance Urine pH Ur Specific [place] Urine Protein Urine Glucose (UA) Urine Ketones Urine Blood Urine Nitrite Urine Bilirubin Urine Urobilinogen Ur Leukocyte Esterase RPR Titer Nonreactive HIV 1&2 Antibody Screen HIV P24 Antigen 10/15/18 05:23 WBC RBC Hgb Hct MCV MCH MCHC RDW Plt Count MPV Sodium Potassium Chloride Carbon Dioxide Anion Gap BUN Creatinine Creat Clearance w eGFR POC Glucometer 86 Random Glucose Calcium Total Bilirubin AST ALT Alkaline Phosphatase Total Protein Albumin Urine Color Urine Appearance Urine pH Ur Specific [place] Urine Protein Urine Glucose (UA) Urine Ketones Urine Blood Urine Nitrite Urine Bilirubin Urine Urobilinogen Ur Leukocyte Esterase RPR Titer HIV 1&2 Antibody Screen HIV P24 Antigen NAD MEDICALLY STABLE PLAN:DISCUSSED WITH PT TO FOLLOW UP WITH CD AFTERCARE WITH [facility] RECOMMENDED ON 11/03/18 @10:30 A.M. FOLLOW UP WITH CALLING FOR AN APPOINTMENT FOR MEDICAL MANAGEMENT 1-2 WEEKS AFTER DISCHARGE FROM REHAB. GO TO THE NEAREST ER IF MEDICALLY NEEDED IN EMERGENCY.
== END 2018-11-02 10:40 | disposition home or self-care (01) | DRG 895 ==
LOC: YASAS 09:33 → Y3N 12:07 → Y5N 10-19 12:54
PROVIDERS: ADMIT Surgery; ATTEND Psychiatry & Neurology Psychiatry
PROC: HZ2ZZZZ Detoxification Services for Substance Abuse Treatment (ICD-10-PCS; principal; 2018-10-13)
PROC: HZ42ZZZ Group Counseling for Substance Abuse Treatment, Cognitive-Behavioral (ICD-10-PCS; 2018-10-19)
DX: F10.230 Alcohol dependence with withdrawal, uncomplicated (principal); F14.20 Cocaine dependence, uncomplicated; F12.20 Cannabis dependence, uncomplicated; F17.213 Nicotine dependence, cigarettes, with withdrawal; J43.9 Emphysema, unspecified; M54.5 Low back pain; G89.29 Other chronic pain; K21.9 Gastro-esophageal reflux disease without esophagitis
CPT/HCPCS: 36415; 80053; 81003; 82962; 85027; 86593; 87389; Q0162

== ENCOUNTER 2023-04-08 02:27 | Inpatient (IN) | payer OTHER ==
[2023-04-08 03:58] VITALS: BMI 22.6
[2023-04-08] MEDS ORDERED: POLYETHYLENE GLYCOL (HEALTHYLAX) 3350 17 GM PACKET PO PRN (06:01)
[2023-04-08] MEDS ORDERED: ACETAMINOPHEN 325 MG TABLET (FP) PO PRN (06:01)
[2023-04-08] MEDS ORDERED: IBUPROFEN 400 MG TABLET (FP) PO PRN (06:01)
[2023-04-08] MEDS ORDERED: IBUPROFEN 600 MG TABLET (FP) PO PRN (06:01)
[2023-04-08] MEDS ORDERED: BENZOCAINE/MENTHOL (CHLORASEPTIC ) LOZENGE MM PRN (06:01)
[2023-04-08] MEDS ORDERED: BISMUTH SUBSALICYLATE 524 MG/30 ML PO PRN (06:01)
[2023-04-08] MEDS ORDERED: MAGNESIUM HYDROX 2400MG/30ML ORAL SUSPENSION 30 ML CUP PO PRN (06:01)
[2023-04-08] MEDS ORDERED: NICOTINE POLACRILEX 2 MG GUM BUC PRN (06:01)
[2023-04-08] MEDS ORDERED: MAG HYDROX/AL HYDROX/SIMETH 30 ML UNIT-DOSE CUP PO PRN (06:01)
[2023-04-08] MEDS ORDERED: ONDANSETRON *ODT* 4 MG TABLET SL PRN (06:01)
[2023-04-08] MEDS ORDERED: LOPERAMIDE HCL 2 MG CAPSULE PO PRN (06:01)
[2023-04-08] MEDS ORDERED: NALOXONE HCL 0.4 MG/ML VIAL IM PRN (06:01)
[2023-04-08] MEDS ORDERED: guaiFENesin 600 MG TABLET.ER (FP) PO PRN (06:01)
[2023-04-08] MEDS ORDERED: DICYCLOMINE HCL 10 MG CAPSULE PO PRN (06:01)
[2023-04-08] MEDS ORDERED: BENZONATATE 200 MG CAPSULE PO PRN (06:01)
[2023-04-08] MEDS ORDERED: METHOCARBAMOL 500 MG TABLET PO PRN (06:01)
[2023-04-08] MEDS ORDERED: IBUPROFEN 400 MG TABLET (FP) PO ONE (06:01)
[2023-04-08] MEDS ORDERED: NALOXONE HCL (KLOXXADO) 8 MG SPRAY NS PRN (06:01)
[2023-04-08] MEDS ORDERED: ALBUTEROL SO4 HFA INHALER IH PRN (08:31)
[2023-04-08] MEDS: NICOTINE 14 MG/24 HOURS TOPICAL PATCH TD SCH (10:34)
[2023-04-08] MEDS: PRENATAL VITAMINS W/ FOLIC ACID TABLET (FP) PO SCH (10:34)
[2023-04-08] MEDS: FAMOTIDINE 20 MG TABLET PO SCH ×2 (10:34→22:36)
[2023-04-08] MEDS ORDERED: LORazepam 1 MG TABLET PO PRN (11:34)
[2023-04-08] MEDS: LORazepam 2 MG TABLET PO SCH ×3 (12:11→22:36)
[2023-04-08 14:31] LABS: POTASSIUM 3.9 mmol/L (3.5-5.1)
[2023-04-08 14:35] LABS: ALBUMIN 3.8 g/dl (3.4-5.0); CALCIUM 9.3 mg/dL (8.5-10.1); HEMATOCRIT 42.6 % (35.4-49); HEMOGLOBIN 13.6 GM/dL (11.7-16.9); MCH 30.2 pg (25.7-33.7); MEAN CELL VOLUME 94.6 fl (80-96); MEAN PLT VOLUME 9.7 fl (7.5-11.1); PLATELET COUNT 183 10^3/uL (134-434); RBC 4.51 M/mm3 (4.00-5.60); RDW 14.6 % (11.9-15.9); WHITE BLOOD COUNT 5.9 K/mm3 (4.0-10.0)
[2023-04-08 14:39] LABS: CREATININE 0.9 mg/dL (0.55-1.3)
[2023-04-08 14:40] LABS: BILIRUBIN,TOTAL 0.2 mg/dL (0.2-1)
[2023-04-08] MEDS ORDERED: MELATONIN 5 MG TABLETS PO SCH (22:00)
[2023-04-08] MEDS: THIAMINE HCL 100 MG TABLET (FP) PO SCH (22:36)
[2023-04-09] MEDS: LORazepam 1 MG TABLET PO SCH ×4 (06:00→22:14)
[2023-04-09] MEDS: FAMOTIDINE 20 MG TABLET PO SCH ×2 (10:55→22:14)
[2023-04-09] MEDS: NICOTINE 14 MG/24 HOURS TOPICAL PATCH TD SCH (10:55)
[2023-04-09] MEDS: PRENATAL VITAMINS W/ FOLIC ACID TABLET (FP) PO SCH (10:56)
[2023-04-09] MEDS ORDERED: MELATONIN 5 MG TABLETS PO SCH (15:26)
[2023-04-09] MEDS: THIAMINE HCL 100 MG TABLET (FP) PO SCH (22:13)
[2023-04-09] MEDS: MELATONIN 5 MG TABLETS PO PRN (22:15)
[2023-04-10] MEDS ORDERED: LORazepam 0.5 MG TABLET PO PRN
[2023-04-10] MEDS: LORazepam 0.5 MG TABLET PO SCH ×4 (05:50→22:52)
[2023-04-10] MEDS: PRENATAL VITAMINS W/ FOLIC ACID TABLET (FP) PO SCH (10:41)
[2023-04-10] MEDS: FAMOTIDINE 20 MG TABLET PO SCH ×2 (10:41→22:52)
[2023-04-10] MEDS: NICOTINE 14 MG/24 HOURS TOPICAL PATCH TD SCH (10:44)
[2023-04-10] MEDS: THIAMINE HCL 100 MG TABLET (FP) PO SCH (22:52)
[2023-04-10] MEDS: MELATONIN 5 MG TABLETS PO PRN (22:53)
[2023-04-11] MEDS ORDERED: LORazepam 0.5 MG TABLET PO ONE (05:00)
[2023-04-11] MEDS: PRENATAL VITAMINS W/ FOLIC ACID TABLET (FP) PO SCH (10:55)
[2023-04-11] MEDS: NICOTINE 14 MG/24 HOURS TOPICAL PATCH TD SCH (10:55)
[2023-04-11] MEDS: FAMOTIDINE 20 MG TABLET PO SCH (10:55)
[2023-04-11 13:25] VITALS: BP 117/82; PULSE 58; RESP 17; TEMP 97.7
== END 2023-04-11 13:52 | disposition home or self-care (01) | DRG 897 ==
LOC: YASAS 02:27 → Y6N 06:05 → UNDOADMIN 06:05
PROVIDERS: ADMIT Allergy & Immunology; ATTEND Allergy & Immunology
PROC: HZ2ZZZZ Detoxification Services for Substance Abuse Treatment (ICD-10-PCS; principal; 2023-04-08)
DX: F10.230 Alcohol dependence with withdrawal, uncomplicated (principal); F14.20 Cocaine dependence, uncomplicated; F12.20 Cannabis dependence, uncomplicated; F17.210 Nicotine dependence, cigarettes, uncomplicated; J44.9 Chronic obstructive pulmonary disease, unspecified; J45.909 Unspecified asthma, uncomplicated; K21.9 Gastro-esophageal reflux disease without esophagitis; G56.02 Carpal tunnel syndrome, left upper limb; M54.50 Low back pain, unspecified; G89.29 Other chronic pain; R63.4 Abnormal weight loss; Z68.22 Body mass index [BMI] 22.0-22.9, adult; Z86.19 Personal history of other infectious and parasitic diseases
CPT/HCPCS: 36415; 80053; 85027; 86593; 86780; 87635; 93005; 93010

== ENCOUNTER 2023-05-23 17:48 | Inpatient (IN) | payer OTHER ==
[2023-05-23] MEDS ORDERED: IBUPROFEN 600 MG TABLET (FP) PO PRN (18:09)
[2023-05-23] MEDS ORDERED: MAG HYDROX/AL HYDROX/SIMETH 30 ML UNIT-DOSE CUP PO PRN (18:09)
[2023-05-23] MEDS ORDERED: LOPERAMIDE HCL 2 MG CAPSULE PO PRN (18:09)
[2023-05-23] MEDS ORDERED: P-EPHED 60MG/TRIPROLIDI 2.5MG TABLET PO PRN (18:09)
[2023-05-23] MEDS ORDERED: ACETAMINOPHEN 325 MG TABLET (FP) PO PRN (18:09)
[2023-05-23] MEDS ORDERED: BENZOCAINE/MENTHOL (CHLORASEPTIC ) LOZENGE MM PRN (18:09)
[2023-05-23] MEDS ORDERED: IBUPROFEN 400 MG TABLET (FP) PO PRN (18:09)
[2023-05-23] MEDS ORDERED: AMMONIUM LACTATE 12% LOTION 225 GM BOTTLE TP PRN (18:09)
[2023-05-23] MEDS ORDERED: COLLOIDAL OATMEAL 1 BAR EACH TP PRN (18:09)
[2023-05-23] MEDS ORDERED: guaiFENesin 600 MG TABLET.ER (FP) PO PRN (18:09)
[2023-05-23] MEDS ORDERED: hydrOXYzine PAMOATE 25 MG CAPSULE (FP) PO PRN (18:09)
[2023-05-23] MEDS ORDERED: POLYETHYLENE GLYCOL (HEALTHYLAX) 3350 17 GM PACKET PO PRN (18:09)
[2023-05-23] MEDS ORDERED: BENZONATATE 200 MG CAPSULE PO PRN (18:09)
[2023-05-23] MEDS ORDERED: MAGNESIUM HYDROX 2400MG/30ML ORAL SUSPENSION 30 ML CUP PO PRN (18:09)
[2023-05-23] MEDS ORDERED: METHOCARBAMOL 500 MG TABLET PO PRN (18:09)
[2023-05-23] MEDS ORDERED: ALBUTEROL SO4 HFA INHALER IH PRN (18:15)
[2023-05-23] MEDS: THIAMINE HCL 100 MG TABLET (FP) PO SCH (21:12)
[2023-05-23] MEDS: FAMOTIDINE 20 MG TABLET PO SCH (21:12)
[2023-05-23] MEDS: MELATONIN 5 MG TABLETS PO SCH (21:12)
[2023-05-24] MEDS: PRENATAL VITAMINS W/ FOLIC ACID TABLET (FP) PO SCH (10:19)
[2023-05-24] MEDS: FAMOTIDINE 20 MG TABLET PO SCH ×2 (10:19→21:35)
[2023-05-24] MEDS: THIAMINE HCL 100 MG TABLET (FP) PO SCH (21:35)
[2023-05-24] MEDS: MELATONIN 5 MG TABLETS PO SCH (21:35)
[2023-05-25] MEDS: PRENATAL VITAMINS W/ FOLIC ACID TABLET (FP) PO SCH (10:00)
[2023-05-25] MEDS: FAMOTIDINE 20 MG TABLET PO SCH ×2 (10:00→21:04)
[2023-05-25] MEDS: THIAMINE HCL 100 MG TABLET (FP) PO SCH (21:04)
[2023-05-25] MEDS: MELATONIN 5 MG TABLETS PO SCH (21:04)
[2023-05-26] MEDS: PRENATAL VITAMINS W/ FOLIC ACID TABLET (FP) PO SCH (09:51)
[2023-05-26] MEDS: FAMOTIDINE 20 MG TABLET PO SCH ×2 (09:51→21:08)
[2023-05-26] MEDS: THIAMINE HCL 100 MG TABLET (FP) PO SCH (21:08)
[2023-05-26] MEDS: MELATONIN 5 MG TABLETS PO SCH (21:08)
[2023-05-27] MEDS: FAMOTIDINE 20 MG TABLET PO SCH ×2 (09:34→21:16)
[2023-05-27] MEDS: PRENATAL VITAMINS W/ FOLIC ACID TABLET (FP) PO SCH (09:34)
[2023-05-27] MEDS: THIAMINE HCL 100 MG TABLET (FP) PO SCH (21:15)
[2023-05-27] MEDS: MELATONIN 5 MG TABLETS PO SCH (21:15)
[2023-05-28] MEDS: DOXYCYCLINE HYCLATE 100 MG TABLET PO SCH ×2 (10:27→18:09)
[2023-05-28] MEDS: FAMOTIDINE 20 MG TABLET PO SCH ×2 (10:27→21:21)
[2023-05-28] MEDS: PRENATAL VITAMINS W/ FOLIC ACID TABLET (FP) PO SCH (10:27)
[2023-05-28] MEDS: THIAMINE HCL 100 MG TABLET (FP) PO SCH (21:21)
[2023-05-28] MEDS: MELATONIN 5 MG TABLETS PO SCH (21:21)
[2023-05-29] MEDS: PRENATAL VITAMINS W/ FOLIC ACID TABLET (FP) PO SCH (09:28)
[2023-05-29] MEDS: FAMOTIDINE 20 MG TABLET PO SCH ×2 (09:29→21:16)
[2023-05-29] MEDS: DOXYCYCLINE HYCLATE 100 MG TABLET PO SCH ×2 (09:29→18:23)
[2023-05-29] MEDS: MELATONIN 5 MG TABLETS PO SCH (21:16)
[2023-05-29] MEDS: THIAMINE HCL 100 MG TABLET (FP) PO SCH (21:16)
[2023-05-30] MEDS: PRENATAL VITAMINS W/ FOLIC ACID TABLET (FP) PO SCH (10:12)
[2023-05-30] MEDS: DOXYCYCLINE HYCLATE 100 MG TABLET PO SCH ×2 (10:12→17:27)
[2023-05-30] MEDS: FAMOTIDINE 20 MG TABLET PO SCH ×2 (10:12→21:02)
[2023-05-30] MEDS: THIAMINE HCL 100 MG TABLET (FP) PO SCH (21:02)
[2023-05-30] MEDS: MELATONIN 5 MG TABLETS PO SCH (21:02)
[2023-05-31] MEDS: FAMOTIDINE 20 MG TABLET PO SCH ×2 (09:45→21:02)
[2023-05-31] MEDS: PRENATAL VITAMINS W/ FOLIC ACID TABLET (FP) PO SCH (09:45)
[2023-05-31] MEDS: DOXYCYCLINE HYCLATE 100 MG TABLET PO SCH ×2 (09:45→17:03)
[2023-05-31] MEDS: MELATONIN 5 MG TABLETS PO SCH (21:02)
[2023-05-31] MEDS: THIAMINE HCL 100 MG TABLET (FP) PO SCH (21:02)
[2023-06-01] MEDS: DOXYCYCLINE HYCLATE 100 MG TABLET PO SCH ×2 (09:04→17:08)
[2023-06-01] MEDS: PRENATAL VITAMINS W/ FOLIC ACID TABLET (FP) PO SCH (09:04)
[2023-06-01] MEDS: FAMOTIDINE 20 MG TABLET PO SCH ×2 (09:04→21:33)
[2023-06-01] MEDS: THIAMINE HCL 100 MG TABLET (FP) PO SCH (21:33)
[2023-06-01] MEDS: MELATONIN 5 MG TABLETS PO SCH (21:33)
[2023-06-02] MEDS: FAMOTIDINE 20 MG TABLET PO SCH ×2 (09:45→21:30)
[2023-06-02] MEDS: DOXYCYCLINE HYCLATE 100 MG TABLET PO SCH ×2 (09:45→17:20)
[2023-06-02] MEDS: PRENATAL VITAMINS W/ FOLIC ACID TABLET (FP) PO SCH (09:45)
[2023-06-02] MEDS: THIAMINE HCL 100 MG TABLET (FP) PO SCH (21:30)
[2023-06-02] MEDS: MELATONIN 5 MG TABLETS PO SCH (21:30)
[2023-06-03] MEDS: PRENATAL VITAMINS W/ FOLIC ACID TABLET (FP) PO SCH (09:33)
[2023-06-03] MEDS: FAMOTIDINE 20 MG TABLET PO SCH ×2 (09:33→21:06)
[2023-06-03] MEDS: DOXYCYCLINE HYCLATE 100 MG TABLET PO SCH (09:33)
[2023-06-03] MEDS ORDERED: PENICILLIN G BENZATHINE 2,400,000 UNIT/4 ML PFS IM ONE (10:15)
[2023-06-03] MEDS: NALTREXONE HCL 50 MG TABLET PO SCH (11:04)
[2023-06-03] MEDS: NICOTINE 14 MG/24 HOURS TOPICAL PATCH TD SCH (11:04)
[2023-06-03] MEDS: MELATONIN 5 MG TABLETS PO SCH (21:06)
[2023-06-03] MEDS: THIAMINE HCL 100 MG TABLET (FP) PO SCH (21:06)
[2023-06-04] MEDS: FAMOTIDINE 20 MG TABLET PO SCH ×2 (09:25→21:15)
[2023-06-04] MEDS: PRENATAL VITAMINS W/ FOLIC ACID TABLET (FP) PO SCH (09:25)
[2023-06-04] MEDS: NICOTINE 14 MG/24 HOURS TOPICAL PATCH TD SCH (09:25)
[2023-06-04] MEDS: NALTREXONE HCL 50 MG TABLET PO SCH (09:25)
[2023-06-04] MEDS: THIAMINE HCL 100 MG TABLET (FP) PO SCH (21:15)
[2023-06-04] MEDS: MELATONIN 5 MG TABLETS PO SCH (21:15)
[2023-06-05] MEDS: PRENATAL VITAMINS W/ FOLIC ACID TABLET (FP) PO SCH (10:39)
[2023-06-05] MEDS: NALTREXONE HCL 50 MG TABLET PO SCH (10:40)
[2023-06-05] MEDS: NICOTINE 14 MG/24 HOURS TOPICAL PATCH TD SCH (10:40)
[2023-06-05] MEDS: FAMOTIDINE 20 MG TABLET PO SCH ×2 (10:40→21:13)
[2023-06-05] MEDS: MELATONIN 5 MG TABLETS PO SCH (21:13)
[2023-06-05] MEDS: THIAMINE HCL 100 MG TABLET (FP) PO SCH (21:13)
[2023-06-06 07:56] VITALS: BP 108/58; PULSE 55; RESP 18; TEMP 97.5
[2023-06-06] MEDS: NICOTINE 14 MG/24 HOURS TOPICAL PATCH TD SCH (09:28)
[2023-06-06] MEDS ORDERED: NALTREXONE MICROSPHERES (VIVITROL) 380 MG DISP.SYRIN IM ONE (09:30)
[2023-06-06] MEDS: PRENATAL VITAMINS W/ FOLIC ACID TABLET (FP) PO SCH (10:22)
[2023-06-06] MEDS: NALTREXONE HCL 50 MG TABLET PO SCH (10:22)
[2023-06-06] MEDS: FAMOTIDINE 20 MG TABLET PO SCH (10:22)
[2023-06-10] MEDS ORDERED: PENICILLIN G BENZATHINE 2,400,000 UNIT/4 ML PFS IM ONE (10:00)
[2023-06-17] MEDS ORDERED: PENICILLIN G BENZATHINE 2,400,000 UNIT/4 ML PFS IM ONE (10:00)
== END 2023-06-06 10:15 | disposition home or self-care (01) | DRG 895 ==
LOC: YASAS 17:48 → Y3W 17:54
PROVIDERS: ADMIT Allergy & Immunology; ATTEND Psychiatry & Neurology Pain Medicine
PROC: HZ42ZZZ Group Counseling for Substance Abuse Treatment, Cognitive-Behavioral (ICD-10-PCS; principal; 2023-05-23)
DX: F10.20 Alcohol dependence, uncomplicated (principal); F14.20 Cocaine dependence, uncomplicated; F12.20 Cannabis dependence, uncomplicated; F17.210 Nicotine dependence, cigarettes, uncomplicated; J43.9 Emphysema, unspecified; K21.9 Gastro-esophageal reflux disease without esophagitis; M54.50 Low back pain, unspecified; G89.29 Other chronic pain; Z20.822 Contact with and (suspected) exposure to COVID-19; Z86.19 Personal history of other infectious and parasitic diseases
CPT/HCPCS: 87635; J2315